=== PATIENT | female | born 1940 | race Caucasian/White ===

== ENCOUNTER → 2017-12-24 09:44 | Outpatient (CLI) | payer MEDICARE, OTHER, SELFPAY ==
[2017-12-24 11:17] LABS: Add Manual Diff / Slide Review NO; Basophils Percent Auto 0.8 % (0-2); Eosinophils Percent Auto 5.6 % (2-4); Hemoglobin 12.9 g/dL (12.0-16.0); Mean Corpuscular HGB Conc 33.1 % (30-36); Mean Corpuscular Hemoglobin 31.5 PG (26-34); Mean Corpuscular Volume 95.3 fL (80-100); Neutrophils Absolute Auto 2800 /uL (3000-5900); Neutrophils Percent Auto 57.6 % (50-75); Platelet Count 312 X10^3/uL (150-400); Red Blood Cell Count 4.09 X10^6/uL (4.0-5.2); Red Cell Distribution Width 14.6 % (11.6-14.8); White Blood Cell Count 4.8 X10^3/uL (4.5-11.0)
[2017-12-24 11:26] LABS: HEMOLYSIS < 15 (0-50); Iron 45 ug/dL (37-170)
[2017-12-24 11:36] LABS: Percent Iron Saturation 13 % (15-50); Total Iron Binding Capacity 351 ug/dL (265-497); Transferrin 288 mg/dL (206-381)
[2017-12-24 12:15] LABS: Alanine Aminotransferase 33 IU/L (9-52); Albumin 4.1 g/dL (3.5-5.0); Albumin Globulin Ratio 1.5 (1.0-2.8); Alkaline Phosphatase 88 U/L (38-126); Aspartate Aminotransferase 34 IU/L (14-36); Bilirubin Total 0.3 mg/dL (0.2-1.3); Blood Urea Nitrogen 16 mg/dL (7-17); Calcium 9.9 mg/dL (8.4-10.2); Carbon Dioxide 26 mmol/L (22-32); Chloride 105 mmol/L (98-107); Estimated Glomerular Filt Rate > 60.0 mL/min (>60); Globulin 2.8 g/dL (1.7-4.1); Glucose 107 mg/dL (80-110); HEMOLYSIS < 15 (0-50); Sodium 142 mmol/L (137-145); Total Protein 6.9 g/dL (6.3-8.2)
[2017-12-24 12:16] LABS: Potassium 5.8 mmol/L (3.4-5.1)
[2017-12-24 12:39] LABS: Ferritin 15.7 ng/mL (11.1-264)
== END ==
PROVIDERS: Visit Provider Nurse Practitioner Family
DX: D50.9 Iron deficiency anemia, unspecified (principal); I10 Essential (primary) hypertension
CPT/HCPCS: 36415; 80053; 82728; 83540; 83550; 85025

== ENCOUNTER 2017-12-26 13:47 | Emergency (ER) | payer MEDICARE, OTHER, SELFPAY ==
[2017-12-26 13:59] VITALS: BP 81/59; PULSE 70; RESP 18; TEMP 36.6; O2SAT 95; BMI 30.5
--- NOTE | 2017-12-26 14:03 | DI.RAD.S_ITS ---
PROCEDURE: XR HUMERUS LT 2V INDICATIONS: fall TECHNIQUE: 2 views of the humerus were acquired. COMPARISON: None. FINDINGS: Bones: There is a mildly displaced fracture of the humeral neck. Fractures also identified within the posterior aspect of the humeral head. There is no displacement at the glenohumeral joint. Soft tissues: No suspicious soft tissue calcifications. IMPRESSION: Mildly displaced humeral neck and and head fractures. Dictated by: Pratima Min M.D. on 12/26/2017 at 15:21 Approved by: Pratima Min M.D. on 12/26/2017 at 15:22
--- NOTE | 2017-12-26 15:17 | ED_ITS ---
HPI - Extremity Injury (Upper) General Chief Complaint: Extremity Injury, Upper Stated Complaint: glf left arm injury Time Seen by Provider: 12/26/17 15:00 Source: patient and family Mode of arrival: ambulatory Limitations: no limitations History of Present Illness HPI narrative: 77F non smoker presents with a family friend and a chief complaint of left shoulder pain. She was walking and tripped over a bag, and fell forward onto her left shoulder. She now has intense pain, particularly with any range of motion. She denies other injury and states she did not hit her head neck or back. She has decreased range of motion secondary to pain but denies numbness, tingling or weakness. Patient states the fall was purely mechanical and denies any precipitating symptoms such as dizziness, weakness or lightheadedness. She denies any chest pain or shortness of breath MD complaint: injury to: left and shoulder Onset (ago): hour(s) Other injuries: none Handedness: right Place: work Severity: moderate Relieving factors: immobilization Exacerbating factors: movement of extremity Context: fall and direct blow Associated symptoms: denies other symptoms Treatments prior to arrival: bandage Related Data Previous Rx's Medication Instructions Recorded hydrocodone-acetaminophen 1 tab PO Q4-6H PRN #14 tab 12/26/17 Allergies Allergy/AdvReac Type Severity Reaction Status Date / Time Penicillins [PENICILLINS] Allergy Mild rash, Verified 12/26/17 17:24 itching Sulfa (Sulfonamide Allergy Unknown Verified 12/26/17 17:24 Antibiotics) [SULFA (SULFONAMIDE ANTIBIOTICS)] Review of Systems Review of Systems All systems reviewed & are unremarkable except as noted in HPI and below Constitutional Denies chills, Denies fever(s), Denies lethargy and Denies weakness Eyes Denies change in vision, Denies eye discharge, Denies irritation and Denies loss of vision ENT Ears, Nose, Mouth, and Throat: Denies change in voice, Denies neck pain and Denies sore throat Cardiovascular Denies chest pain, Denies irregular heart rhythm, Denies lightheadedness, Denies palpitations, Denies dyspnea, Denies dyspnea on exertion and Denies orthopnea Respiratory Denies cough, Denies dyspnea, Denies dyspnea on exertion and Denies wheezing Gastrointestinal Gastrointestinal: Denies abdominal pain, Denies change in bowel habits, Denies diarrhea, Denies nausea and Denies vomiting Genitourinary Denies hematuria, Denies flank pain, Denies urinary incontinence and Denies urinary urgency Musculoskeletal Denies neck pain Integumentary/Breasts Denies pruritus, Denies erythema, Denies rash and Denies wounds Neurologic Denies confusion, Denies loss of vision and Denies weakness Psychiatric Denies anxiety, Denies confusion, Denies depression, Denies homicidal ideation and Denies suicidal ideation Endocrine Denies palpitations Hematologic/Lymphatic Denies easy bruising Allergic/Immunologic Denies wheezing PFSH Social History Smoking Status: Never smoker Exam Narrative Exam Narrative: GENERAL: 77-year-old female obviously in significant pain, sitting forward and clutching her left shoulder HEAD: Atraumatic. Normocephalic. No temporal or scalp tenderness. EYES: Pupils equal round and reactive. Extraocular motions intact. No scleral icterus. No injection or drainage. ENT: Nose without bleeding, purulent drainage or septal hematoma. Throat without erythema, tonsillar hypertrophy or exudate. Uvula midline. Airway patent. NECK: Trachea midline. No JVD or lymphadenopathy. Supple, nontender, no meningeal signs. CARDIOVASCULAR: Regular rate and rhythm without murmurs, gallops, or rubs. RESPIRATORY: Clear to auscultation. Breath sounds equal bilaterally. No wheezes , rales, or rhonchi. GASTROINTESTINAL: Abdomen soft, non-tender, nondistended. No hepato-splenomegaly , or palpable masses. No guarding. EXTREMITIES: decreased range of motion secondary to pain. Full range of motion at elbow and wrist. Sensation intact. Radial pulse and cap refill intact and normal BACK: Nontender without deformity or crepitance. No flank tenderness. NEURO: AOx3. SKIN: No rash or erythema. Initial Vital Signs Initial Vital Signs: Vital Signs Temperature 97.8 F 12/26/17 13:59 Pulse Rate 70 12/26/17 13:59 Respiratory Rate 18 12/26/17 13:59 Blood Pressure 81/59 L 12/26/17 13:59 Pulse Oximetry 95 12/26/17 13:59 Procedures Orthopedic Splinting/Casting Injury #1: Side: left Upper Extremity Injury Location: shoulder Upper Extremity Immobilizer: sling/shoulder immobilizer Course Orders Ordered: ED Orders 12/26/17 14:03 XR humerus LT 2V Stat Discontinued Medications Hydrocodone Bitart/Acetaminophen (Vicodin Prepack) 1 bottle MISC SEEINSTR ONE Stop: 12/26/17 16:49 Last Admin: 12/26/17 17:29 Dose: 1 bottle Fentanyl (Sublimaze) 25 mcg NASAL NOW ONE Stop: 12/26/17 15:12 Last Admin: 12/26/17 15:43 Dose: 25 mcg Reevaluation(s) Reevaluation #1: patient was given intranasal fentanyl prior to attempt at using a sling. This proved unsuccessful and she was very hesitant to try the sling. Eventually she was given hydrocodone and reluctantly tried the sling Vital Signs - 8 hr 12/26/17 13:59 12/26/17 15:22 12/26/17 18:52 Temperature 97.8 F Pulse Rate 70 79 Pulse Rate [Left Radial] 97 H Respiratory Rate 18 15 Blood Pressure 81/59 L Blood Pressure [Left Arm] 111/64 Pulse Oximetry 95 98 12/26/17 18:56 Temperature 98.6 F Pulse Rate 97 H Pulse Rate [Left Radial] Respiratory Rate 18 Blood Pressure Blood Pressure [Left Arm] 141/86 H Pulse Oximetry 100 MDM - Extremity Injury (Upper) Lab Data Attestation: I reviewed the patient's lab results. Imaging Data Shoulder Xray: Attestation: I personally reviewed and interpreted this imaging study as follows: Radiologist's impression: [place] [address] XRay Report Signed Patient: Rissa Fatima [facility]#: [id number] : 8Acct:[id number] Age/Sex: 77 / FDate of Service: 12/26/17 Loc: ED Accession Number: [id number] Procedure: XR humerus LT 2V Ordering Provider: Marcel Boles D.O. PROCEDURE: XR HUMERUS LT 2V INDICATIONS: fall TECHNIQUE: 2 views of the humerus were acquired. COMPARISON: None. FINDINGS: Bones: There is a mildly displaced fracture of the humeral neck. Fractures also identified within the posterior aspect of the humeral head. There is no displacement at the glenohumeral joint. Soft tissues: No suspicious soft tissue calcifications. IMPRESSION: Mildly displaced humeral neck and and head fractures. Dictated by: Pratima Min M.D. on 12/26/2017 at 15:21 Approved by: Pratima Min M.D. on 12/26/2017 at 15:22 Discharge Plan Departure Patient Disposition: Home Clinical Impression: Fracture of proximal end of left humerus Discharge Date/Time: 12/26/17 18:56 Instructions: DI for Humeral Fracture Activity Restrictions/Additional Instructions: *You have been diagnosed with [ humerus fracture ] *What to do: *Take medications as directed *Follow up with your primary care provider in 2-3 days, call for an appointment. Let them know you were seen in the Emergency Department and that we ask that you be seen in follow up *Return to ER if you should have any new, worsening or concerning symptoms Prescriptions: New hydrocodone-acetaminophen 5-325 mg tablet 1 tab PO Q4-6H PRN (Reason: pain) Qty: 14 RF: 0 Referrals: Beatris Tanner MD [Physician] -
[2017-12-26 15:22] VITALS: BP 111/64; PULSE 79; RESP 15; O2SAT 98
[2017-12-26] MEDS: fentaNYL 100 MCG/2 ML INJ 25 MCG NASAL (15:43)
[2017-12-26] MEDS: HYDROCODONE/ACET 5/325 PREPACK 1 BOTTLE MISC (17:29)
[2017-12-26 18:52] VITALS: PULSE 97
[2017-12-26 18:56] VITALS: BP 141/86; PULSE 97; RESP 18; TEMP 37; O2SAT 100
== END 2017-12-26 18:56 | disposition home or self-care (01) ==
PROVIDERS: Emergency Provider Emergency Medicine
DX: S42.202A Unspecified fracture of upper end of left humerus, initial encounter for closed fracture (principal); W01.0XXA Fall on same level from slipping, tripping and stumbling without subsequent striking against object, initial encounter
CPT/HCPCS: 73060; 99282; 99283; J3010

== ENCOUNTER 2018-08-02 21:56 | Emergency (ER) | payer MEDICARE, OTHER, SELFPAY ==
[2018-08-02 22:04] VITALS: BP 154/100; PULSE 100; RESP 19; TEMP 36.7; O2SAT 97; BMI 31.1
--- NOTE | 2018-08-02 22:20 | DI.US.S_ITS ---
PROCEDURE: US PERIPH VENOUS LOW EXTREM LT INDICATIONS: PAIN, EDEMA TECHNIQUE: Real-time imaging, as well as color and pulse Doppler interrogation, were performed of the lower extremity deep veins from the inguinal ligament to the popliteal fossa. COMPARISON: None. FINDINGS: The common femoral, femoral and popliteal veins are normally compressible, and free of intraluminal thrombus. Color and pulse Doppler demonstrate normal phasic intraluminal flow. There is normal augmentation response to distal compression maneuver. IMPRESSION: No evidence of deep vein thrombosis involving the left lower extremity. Dictated by: Michelle Benitez MD, PhD on 08/03/2018 at 9:58 Approved by: Michelle Benitez MD, PhD on 08/03/2018 at 9:58
--- NOTE | 2018-08-02 22:42 | ED_ITS ---
HPI - Extremity Problem General Chief complaint: Extremity Problem,Nontraumatic Stated complaint: LEFT LOWER LEG SWELLING UNABLE TO BARE WEIGHT Time Seen by Provider: 08/02/18 22:19 Source: patient Mode of arrival: ambulatory Limitations: no limitations History of Present Illness HPI Narrative: Patient is an 78-year-old female who presents with left knee and leg pain. She says it happened suddenly she sat down at a restaurant for dinner she felt a sudden pop she had pain. She is unable to bear weight. She now has swelling in her rod and calf. She is worried about a blood clot. She has not had any recent traveling she has no shortness of breath. No history of blood clots MD Complaint: extremity pain and extremity swelling Related Data Previous Rx's Medication Instructions Recorded hydrocodone-acetaminophen 1 tab PO Q4-6H PRN #14 tab 12/26/17 Allergies Allergy/AdvReac Type Severity Reaction Status Date / Time Penicillins [PENICILLINS] Allergy Mild rash, Verified 08/02/18 22:16 itching Sulfa (Sulfonamide Allergy Unknown Verified 08/02/18 22:16 Antibiotics) [SULFA (SULFONAMIDE ANTIBIOTICS)] Review of Systems Review of Systems GENERAL: Denies chills,fever HEENT: Denies throat pain RESPIRATORY: Denies dyspnea, cough, wheezing CARDIOVASCULAR: Denies chest pain, palpitations GASTROINTESTINAL: Denies nausea, vomiting MUSCULOSKELETAL: See HPI SKIN: No rash, no laceration, no pruritus NEUROLOGIC: Denies weakness, dizziness, headache, numbness 8 point review of systems is negative except for those stated above and HPI PFSH Medical History Patient denies significant medical history (Acute) Social History Smoking Status: Never smoker Social History Smoking Status: Never smoker Exam Initial Vital Signs Initial Vital Signs: Vital Signs Temperature 98.1 F 08/02/18 22:04 Pulse Rate 100 H 08/02/18 22:04 Respiratory Rate 19 08/02/18 22:04 Blood Pressure 154/100 H 08/02/18 22:04 Pulse Oximetry 97 08/02/18 22:04 GENERAL: Well-appearing, well-nourished and in no acute distress. CARDIOVASCULAR: peripheral pulses in tact, cap refill <2 sec RESPIRATORY: No respiratory distress, speaks in full sentences without diffic ulty EXTREMITIES: Normal range of motion, no clubbing or edema. Neurovascularly intact Left lower extremity: Mild swelling at the knee no pain behind the knee. She does have swelling and pain slightly anterior and at the patella. Knee is stable. NEUROLOGICAL: Cranial nerves II through XII grossly intact. Normal gait and speech. SKIN: Warm, dry, no petechiae, no rashes or lesions. Course Orders Ordered: ED Orders 08/02/18 22:20 US periph venous low extrem lt Stat Vital Signs - 8 hr 08/02/18 22:04 Temperature 98.1 F Pulse Rate 100 H Respiratory Rate 19 Blood Pressure 154/100 H Pulse Oximetry 97 MDM - Extremity (Nontraumatic) Imaging Data Venous US: Radiologist's impression: Left lower extremity venous duplex negative for DVT moderate sized popliteal cyst Discharge Plan Departure Patient Disposition: Home Clinical Impression: Mendez's cyst, ruptured Discharge Date/Time: 08/02/18 22:52 Interventions: ED Discharge Assessment Last Done: 08/02/18 22:51 Instructions: Bakers Cyst Activity Restrictions/Additional Instructions: *You have been diagnosed with ruptured Mendez cyst *What to do: The pain is likely from a ruptured Mendez cyst. You have some swelling and fluid in her knee which is causing her pain and discomfort. I recommend that he elevate and ice it which will help decrease the fluid. *Continue to take medications as directed Ibuprofen 400 mg every 6-8 hours if needed for pain *Follow up with your primary care provider in 2-3 days *Return to ER if you should have increasing swelling, increasing pain or any new, worsening or concerning symptoms Prescriptions: No Action hydrocodone-acetaminophen 5-325 mg tablet 1 tab PO Q4-6H PRN (Reason: pain) Qty: 14 RF: 0
== END 2018-08-02 22:52 | disposition home or self-care (01) ==
PROVIDERS: Emergency Provider Emergency Medicine
DX: M66.0 Rupture of popliteal cyst (principal)
CPT/HCPCS: 93971; 99282; 99283

== ENCOUNTER 2018-08-29 15:27 | Emergency (ER) | payer MEDICARE, OTHER, SELFPAY ==
[2018-08-29 15:31] VITALS: BP 164/86; PULSE 102; RESP 20; TEMP 37.2; O2SAT 97
--- NOTE | 2018-08-29 15:36 | DI.RAD.S_ITS ---
PROCEDURE: XR CHEST 1V INDICATIONS: fatigue, chest congestion TECHNIQUE: One view of the chest was acquired. COMPARISON: None. FINDINGS: Surgical changes and devices: None. Lungs and pleura: Lungs are clear. No pleural effusions or pneumothorax. Mediastinum: The cardiac contours are within normal limits. The aorta demonstrates calcification and tortuosity. Bones and chest wall: No suspicious bony lesions. Age-appropriate bony degenerative changes are seen. There is a remote appearing left humeral neck fracture. Overlying soft tissues appear unremarkable. IMPRESSION: Portable chest within normal limits for age. Dictated by: Jefferson Yanez M.D. on 08/29/2018 at 15:06 Approved by: Jefferson Yanez M.D. on 08/29/2018 at 15:06
[2018-08-29 15:50] VITALS: BP 178/87; PULSE 97; RESP 14; O2SAT 97
[2018-08-29 16:06] LABS: Add Manual Diff / Slide Review NO; Basophils Absolute Auto 100 /uL (0-100); Eosinophils Absolute Auto 100 /uL (0-450); Eosinophils Percent Auto 1.3 % (2-4); Hematocrit 37.3 % (36-46); Hemoglobin 12.1 g/dL (12.0-16.0); Lymphocytes Absolute Auto 1600 /uL (1100-4500); Lymphocytes Percent Auto 25.1 % (25-40); Mean Corpuscular HGB Conc 32.4 % (30-36); Mean Corpuscular Hemoglobin 28.9 PG (26-34); Mean Corpuscular Volume 89.2 fL (80-100); Monocytes Absolute Auto 700 /uL (0-900); Monocytes Percent Auto 10.7 % (3-14); Neutrophils Absolute Auto 3800 /uL (1500-7000); Neutrophils Percent Auto 61.9 % (50-75); Platelet Count 378 X10^3/uL (150-400); Red Blood Cell Count 4.18 X10^6/uL (4.0-5.2); Red Cell Distribution Width 16.5 % (11.6-14.8); White Blood Cell Count 6.2 X10^3/uL (4.5-11.0)
[2018-08-29 16:10] LABS: Alanine Aminotransferase 23 IU/L (9-52); Albumin 4.5 g/dL (3.5-5.0); Albumin Globulin Ratio 1.4 (1.0-2.8); Alkaline Phosphatase 86 U/L (38-126); Aspartate Aminotransferase 29 IU/L (14-36); Bilirubin Total 0.3 mg/dL (0.2-1.3); Blood Urea Nitrogen 12 mg/dL (7-17); Calcium 9.7 mg/dL (8.4-10.2); Carbon Dioxide 26 mmol/L (22-32); Chloride 104 mmol/L (98-107); Creatine Kinase 79 U/L (30-135); Estimated Glomerular Filt Rate > 60.0 mL/min (>60); Globulin 3.3 g/dL (1.7-4.1); Glucose 109 mg/dL (80-110); HEMOLYSIS < 15 (0-50); Potassium 4.4 mmol/L (3.4-5.1); Sodium 139 mmol/L (137-145); Total Protein 7.8 g/dL (6.3-8.2)
[2018-08-29 16:21] LABS: Troponin I < 0.012 ng/mL (0.01-0.034)
[2018-08-29 17:36] VITALS: BP 154/78; PULSE 75; RESP 15; O2SAT 99
[2018-08-29 18:00] VITALS: BP 144/72; PULSE 75
[2018-08-29] MEDS: SODIUM CHLORIDE 0.9% 1,000 ML 1000 ML IV (18:07)
[2018-08-29] MEDS: KETOROLAC 60 MG/2 ML VIAL 30 MG IV (18:27)
--- NOTE | 2018-08-29 18:43 | ED_ITS ---
HPI - Nausea/Vomiting/Diarrhea General Chief complaint: Nausea/Vomiting/Diarrhea Stated complaint: diarrhea,headaches,weakness sent by walk in Time Seen by Provider: 08/29/18 16:25 Source: patient and family Mode of arrival: ambulatory Limitations: no limitations History of Present Illness HPI Narrative: Patient comes to the emergency department complaining of intermittent diarrhea for just over a week. Patient states that her dog has also had diarrhea, and she thinks they may have the same thing. The patient states that about 8 days ago, she had diarrhea times several episodes in 1 day. She states it was watery, and unaccompanied by any other symptoms, other than feeling tired. Patient states the diarrhea only lasted 1 day, and for about a week after that, the patient seemed to be functioning normally, except for feeling tired. She states she did have an episode of dry heaving about 3 days ago, but did not vomit, and this resolved on its own. Patient states her appetite has been decreased, so she has not been eating as much as usual. Patient states that today, her diarrhea started up again, and has been watery/runny stool. Patient denies any measured fevers, though she did have the chills yesterday. She denies any abdominal pain, other than cramping when she has the diarrhea. No chest pain or shortness of breath. No dysuria. She has chronic back pain and states she has not noticed any change in this. No blood in her stool that she has noticed. Patient denies any exotic travel. No recent camping or hiking and drinking from streams. Nobody else has been sick that she has been exposed to. No recent antibiotic use. No new medications. No history of chronic bowel disorder. No other complaints at this time. Related Data Previous Rx's Medication Instructions Recorded hydrocodone-acetaminophen 1 tab PO Q4-6H PRN #14 tab 12/26/17 Allergies Allergy/AdvReac Type Severity Reaction Status Date / Time Penicillins [PENICILLINS] Allergy Mild rash, Verified 08/02/18 22:16 itching Sulfa (Sulfonamide Allergy Unknown Verified 08/02/18 22:16 Antibiotics) [SULFA (SULFONAMIDE ANTIBIOTICS)] Review of Systems Constitutional Reports chills (Yesterday only), Reports fatigue, Denies fever(s), Denies let hargy and Denies weakness Eyes Denies change in vision, Denies eye discharge, Denies irritation and Denies loss of vision ENT Ears, Nose, Mouth, and Throat: Denies change in voice, Denies neck pain and Denies sore throat Cardiovascular Denies chest pain, Denies irregular heart rhythm, Denies lightheadedness, Denies palpitations, Denies dyspnea, Denies dyspnea on exertion and Denies orthopnea Respiratory Denies cough, Denies dyspnea, Denies dyspnea on exertion and Denies wheezing Gastrointestinal Gastrointestinal: Reports abdominal pain (Cramping only), Denies change in bowel habits, Reports diarrhea, Denies nausea and Denies vomiting Genitourinary Denies hematuria, Denies flank pain, Denies urinary incontinence and Denies urinary urgency Musculoskeletal Denies neck pain Integumentary/Breasts Denies pruritus, Denies erythema, Denies rash and Denies wounds Neurologic Denies confusion, Denies loss of vision and Denies weakness Psychiatric Denies anxiety, Denies confusion, Denies depression, Denies homicidal ideation and Denies suicidal ideation Endocrine Reports fatigue and Denies palpitations Hematologic/Lymphatic Denies easy bruising Allergic/Immunologic Denies wheezing [facility] Medical History Patient denies significant medical history (Acute) Social History Smoking Status: Never smoker Exam Initial Vital Signs Initial Vital Signs: Vital Signs Temperature 98.9 F 08/29/18 15:31 Pulse Rate 102 H 08/29/18 15:31 Respiratory Rate 20 08/29/18 15:31 Blood Pressure 164/86 H 08/29/18 15:31 Pulse Oximetry 97 08/29/18 15:31 Const General: cooperative and well developed Nutritional Appearance: well nourished Orientation: alert, awake, oriented x3 and not confused [facility] Head: normocephalic and atraumatic Ears: external ears normal Nose: external nose normal and No nasal discharge Face and sinus: face symmetric and No dry mucous membranes Mouth: oral mucosae normal and moist mucous membranes Teeth and gingiva: dentition normal Eyes General: appearance normal, both eyes and all related structures Eyelids: eyelids normal Conjunctivae: conjunctivae normal Sclera: sclerae normal Pupils: PERRL EOM: EOM intact bilaterally Neck Neck: normal visual inspection, trachea midline, No lymphadenopathy, No midline deformity and No JVD Lymphatic: No lymphedema Chest Chest: normal inspection of the chest Resp Effort & Inspection: normal respiratory effort, able to speak in complete sentences, no respiratory distress and no use of accessory muscles Auscultation: clear to auscultation bilaterally, no rales, no rhonchi and no wheezes Cardio Rate: regular rate Rhythm: regular rhythm Heart Sounds: no click, no gallops, no murmurs and no rubs Pulses: normal peripheral pulses GI Inspection: non-distended Palpation: soft, no hepatosplenomegaly, No guarding, No pulsatile mass and No tender Back/Spine/Pelvis Back: No CVA tenderness Cervical Spine: cervical ROM normal and No pain with cervical ROM Thoracic/Lumbar Spine: thoracic and lumbar spine normal to inspection Skin General: no rashes or lesions noted, No jaundice and No petechiae Neuro General: alert, oriented x3, gait normal and no focal motor deficits Speech: speech normal Extrem General: full ROM, no clubbing, cyanosis or edema, no pedal edema and no calf tenderness Psych Appearance: well kempt Mental Status: mental status grossly normal Attitude: cooperative Thought Content: normal and suicidality Judgment: judgment good Course Course Narrative: Patient was worked up with labs, and treated with IV fluids. Her labs were unremarkable. I discussed with the patient that the best way to evaluate her diarrhea is with a stool sample, but the patient did not feel she would be able to give one here in the emergency department. She was given a cup in K she felt the urge to go while receiving her IV fluids. I have discussed with her the various potential causes of diarrhea. The patient is signed out to Dr. Naik, pending completion of IV fluids. Discharge home with follow-up with primary care physician is anticipated, barring any change in the patient's condition. Orders Ordered: ED Orders 08/29/18 15:30 Complete Blood Count AUTO DIFF Stat Comprehensive Metabolic Panel Stat Troponin & CK Cardiac Panel Stat 08/29/18 15:36 XR chest 1V Stat EKG-12 Lead Stat Sodium Chloride (Normal Saline 0.9%) 1,000 mls @ 1,000 mls/hr IV BOLUS ONE Stop: 08/29/18 18:44 Last Admin: 08/29/18 18:07 Dose: 1,000 mls/hr Discontinued Medications Ketorolac Tromethamine (Toradol) 30 mg IV NOW ONE Stop: 08/29/18 18:24 Last Admin: 08/29/18 18:27 Dose: 30 mg Vital Signs - 8 hr 08/29/18 15:31 08/29/18 15:50 08/29/18 17:36 Temperature 98.9 F Pulse Rate 102 H 97 H 75 Respiratory Rate 20 14 15 Blood Pressure 164/86 H Blood Pressure [Right Arm] 178/87 H 154/78 H Pulse Oximetry 97 97 99 MDM - Nausea/Vomiting/Diarrhea Medical Records Attestation: I reviewed the patient's medical records. Lab Data Attestation: I reviewed the patient's lab results. Result diagrams: 08/29/18 15:30 08/29/18 15:30 Lab Results 08/29/18 08/29/18 Range/Units 15:30 15:30 WBC 6.2 (4.5-11.0) X10^3/uL RBC 4.18 (4.0-5.2) X10^6/uL Hgb 12.1 (12.0-16.0) g/dL Hct 37.3 (36-46) % MCV 89.2 (80-100) fL MCH 28.9 (26-34) PG MCHC 32.4 (30-36) % RDW 16.5 H (11.6-14.8) % Plt Count 378 (150-400) X10^3/uL Neut % (Auto) 61.9 (50-75) % Lymph % (Auto) 25.1 (25-40) % [place] % (Auto) 10.7 (3-14) % Eos % (Auto) 1.3 L (2-4) % Baso % (Auto) 1.0 (0-2) % Neut # (Auto) 3800 (5508-5721) /uL Lymph # (Auto) 1600 (4968-8846) /uL [place] # (Auto) 700 (0-900) /uL Eos # (Auto) 100 (0-450) /uL Baso # (Auto) 100 (0-100) /uL Sodium 139 (137-145) mmol/L Potassium 4.4 (3.4-5.1) mmol/L Chloride 104 (98-107) mmol/L Carbon Dioxide 26 (22-32) mmol/L BUN 12 (7-17) mg/dL Creatinine 0.80 (0.52-1.04) mg/dL Estimated GFR > 60.0 (>60) mL/min BUN/Creatinine Ratio 15.0 (6-22) Glucose 109 (80-110) mg/dL Calcium 9.7 (8.4-10.2) mg/dL Total Bilirubin 0.3 (0.2-1.3) mg/dL AST 29 (14-36) IU/L ALT 23 (9-52) IU/L Alkaline Phosphatase 86 (38-126) U/L Total Creatine Kinase 79 (30-135) U/L CK-MB (CK-2) TNP CK-MB (CK-2) Rel Index TNP Troponin I < 0.012 (0.01-0.034) ng/mL Total Protein 7.8 (6.3-8.2) g/dL Albumin 4.5 (3.5-5.0) g/dL Globulin 3.3 (1.7-4.1) g/dL Albumin/Globulin Ratio 1.4 (1.0-2.8) Discharge Plan Departure Patient Disposition: Home Clinical Impression: Diarrhea Qualifiers: Diarrhea type: unspecified type Qualified Code(s): R19.7 - Diarrhea, unspecified Instructions: DI for Dehydration -- Adult, DI for Diarrhea and Traveler's Diarrhea -- Adult Activity Restrictions/Additional Instructions: Your labs look great. You have been treated with IV fluids for any dehydration that may be present from your decreased oral intake and diarrhea. There is no evidence of a serious condition causing your diarrhea. The best diagnostic tool in evaluating diarrhea is a stool sample evaluation. Since you have not been able to give a stool sample here in the emergency department, please take the cup home. If you began having diarrhea again, please collect a sample at home and bring it to your primary care physician's office for further evaluation. In the meantime, please make an appointment to follow up with your primary doctor. Prescriptions: No Action hydrocodone-acetaminophen 5-325 mg tablet 1 tab PO Q4-6H PRN (Reason: pain) Qty: 14 RF: 0 Referrals: [facility] [Provider Group]
[2018-08-29 19:00] VITALS: BP 170/78; PULSE 80; O2SAT 99
[2018-08-29 19:15] VITALS: BP 144/73; PULSE 83; RESP 18; O2SAT 96
== END 2018-08-29 19:19 | disposition home or self-care (01) ==
PROVIDERS: Emergency Provider Emergency Medicine
DX: R19.7 Diarrhea, unspecified (principal); R03.0 Elevated blood-pressure reading, without diagnosis of hypertension
CPT/HCPCS: 36591; 71045; 80053; 82550; 84484; 85025; 93005; 96361; 96374; 99283; 99285; J1885

== ENCOUNTER 2020-01-09 12:32 | Observation (INO) | payer MEDICARE, OTHER, SELFPAY ==
[2020-01-09] VITALS (13 sets, daily range): BP systolic 105–172; BP diastolic 63–88; PULSE 79–116; RESP 16–36; TEMP 36.2–36.9; O2SAT 95–100
--- NOTE | 2020-01-09 12:40 | DI.RAD.S_ITS ---
PROCEDURE: XR CHEST 1V INDICATIONS: Chest pain TECHNIQUE: One view of the chest was acquired. COMPARISON: [facility], CR, XR CHEST 1V, 08/29/2018, 15:42. FINDINGS: Surgical changes and devices: None. Lungs and pleura: Lungs are clear. No pleural effusions or pneumothorax. Mediastinum: Mediastinal contours appear normal. Heart size is normal. Moderately large hiatal hernia behind the heart Bones and chest wall: No suspicious bony lesions. Overlying soft tissues appear unremarkable. IMPRESSION: Moderately large hiatal hernia behind heart, a definite source of chest pain is not seen. Dictated by: Forrest Hernandez M.D. on 01/09/2020 at 13:23 Approved by: Forrest Hernandez M.D. on 01/09/2020 at 13:23
[2020-01-09 12:53] LABS: Add Manual Diff / Slide Review NO; Basophils Absolute Auto 100 /uL (0-100); Basophils Percent Auto 0.7 % (0-2); Eosinophils Absolute Auto 100 /uL (0-450); Eosinophils Percent Auto 1.8 % (2-4); Hematocrit 35.8 % (36-46); Lymphocytes Absolute Auto 1200 /uL (1100-4500); Lymphocytes Percent Auto 15.2 % (25-40); Mean Corpuscular HGB Conc 33.4 % (30-36); Mean Corpuscular Hemoglobin 30.7 PG (26-34); Mean Corpuscular Volume 92.1 fL (80-100); Monocytes Absolute Auto 700 /uL (0-900); Monocytes Percent Auto 9.4 % (3-14); Neutrophils Absolute Auto 5800 /uL (1500-7000); Neutrophils Percent Auto 72.9 % (50-75); Platelet Count 390 X10^3/uL (150-400); Red Blood Cell Count 3.89 X10^6/uL (4.0-5.2); Red Cell Distribution Width 14.3 % (11.6-14.8); White Blood Cell Count 7.9 X10^3/uL (4.5-11.0)
[2020-01-09 13:08] LABS: INR 0.9 (0.9-1.3); Prothrombin Time 10.8 SECONDS (10.1-12.7)
--- NOTE | 2020-01-09 13:09 | ED_ITS ---
HPI - Chest Pain General Chief Complaint: Chest Pain Stated Complaint: Elephant Sitting On Chest,Weakness Time Seen by Provider: 01/09/20 12:39 Source: patient Mode of arrival: Ambulatory Limitations: no limitations History of Present Illness HPI narrative: Patient is an 79-year-old female here for evaluation which she describes as an elephant sitting on her chest and also weakness in her legs. Patient states that the chest discomfort that she presents with today has happened to her in the past. She states is actually going on for several years being off and on. She does not know anything that potentially makes it worse or makes it better. She is not currently having symptoms however she did have it this morning. She also states that what is different about this is that she was feeling somewhat weak in her legs. She denies any other associated symptoms. No sick contacts. No fevers. Patient is tachycardic however she states that her heart rate is normally greater than 110. She had a history of rheumatic fever as a child in states she has chronic lung issues without any specific diagnosis. She has been taking all of her medications as directed. Related Data Home Medications Medication Instructions Recorded Confirmed cyclosporine [Restasis] 1 drp OPHTHALMIC (EYE) DAILY 01/09/20 01/09/20 lisinopril 10 mg PO DAILY 01/09/20 01/09/20 valacyclovir 1 PO DAILY 01/09/20 Previous Rx's Medication Instructions Recorded hydrocodone-acetaminophen 1 tab PO Q4-6H PRN #14 tab 12/26/17 Allergies Allergy/AdvReac Type Severity Reaction Status Date / Time Penicillins [PENICILLINS] Allergy Mild rash, Verified 08/02/18 22:16 itching Sulfa (Sulfonamide Allergy Unknown Verified 08/02/18 22:16 Antibiotics) [SULFA (SULFONAMIDE ANTIBIOTICS)] Review of Systems Constitutional Constitutional: Denies fever(s), Denies headache(s) and Reports weakness ENT Ears, Nose, Mouth, and Throat: Denies headache(s) Cardiovascular Cardiovascular: Reports chest pain, Denies rapid heart rate, Denies irregular heart rhythm, Denies lightheadedness, Denies dyspnea and Denies dyspnea on exertion Respiratory Respiratory: Denies cough, Denies dyspnea and Denies dyspnea on exertion Gastrointestinal Gastrointestinal: Denies abdominal pain, Denies nausea and Denies vomiting Genitourinary Genitourinary: Denies dysuria Genitourinary: Denies dysuria Musculoskeletal Musculoskeletal: Denies arthralgias and Denies myalgias Comments: Lower extremity weakness Integumentary/Breasts Skin/Breast: Denies lesions and Denies rash Neurologic Neurologic: Denies behavioral changes, Denies headache(s) and Reports weakness Psychiatric Psychiatric: Denies behavioral changes Hematologic/Lymphatic Hematologic/Lymphatic: Denies easy bleeding and Denies easy bruising Allergic/Immunologic Allergic/Immunologic: Denies urticaria Patient History Medical History Patient denies significant medical history Rheumatic fever Social History household members: none Smoking Status: Never smoker Smoking Status: Never smoker alcohol intake frequency: a few times a week Substance Use Type: does not use Exam Initial Vital Signs Initial Vital Signs: Vital Signs Pulse Rate 109 H 01/09/20 12:41 Respiratory Rate 35 H 01/09/20 12:41 Pulse Oximetry 100 01/09/20 12:41 Const General: cooperative, comfortable, well developed and well groomed Limitations: mental status not altered HENMT Head: normal to inspection and normocephalic Chest Chest: normal inspection of the chest Resp Effort & Inspection: normal respiratory effort Auscultation: clear to auscultation bilaterally Cardio Rate: tachycardic Rhythm: regular rhythm Pulses: radial pulses present GI Inspection: non-distended Palpation: soft Skin Lesions: no lesions Rashes: no rashes Neuro General: patient alert, patient awake and patient oriented x3 Cognition: normal cognition Speech: speech normal Gait: normal gait Motor: muscle tone normal throughout Extrem General: normal to inspection and capillary refill normal Psych Appearance: grossly normal and well kempt Scores GCS Claudia coma scale eye opening: Spontaneous Claudia coma scale verbal response: Orientated [place] coma scale motor response: Obey commands Claudia coma scale total score: 15 HEART Score Heart Score history: Slightly Suspicious Heart Score EKG: Normal Heart Score Age: > or = 65 years old Heart Score risk factors: 1-2 risk factors Heart Score troponin: < or = to normal limit Heart Score Total: 3 Course Orders Ordered: ED Orders 01/09/20 12:40 XR chest 1V Stat 01/09/20 12:41 EKG-12 Lead Stat 01/09/20 12:48 Complete Blood Count AUTO DIFF Stat Comprehensive Metabolic Panel Stat Lipase Stat NT-proBNP (BNP-Adult 18+) Stat Partial Thromboplastin Time Stat Procalcitonin Stat Prothrombin Time INR Stat Troponin & CK Cardiac Panel Stat 01/09/20 13:17 D Dimer Stat 01/09/20 13:47 COVID19 Stat 01/09/20 14:06 CT angio chest PE protocol Stat Sodium Chloride (Normal Saline 0.9%) 1,000 mls @ 125 mls/hr IV CONT MUKESH Last Infusion: 01/09/20 16:22 Dose: 0 mls/hr Documented by: Admin: 01/09/20 14:02 Dose: 125 mls/hr Documented by: SCANAPO Vital Signs Vital signs: Vital Signs - 8 hr 01/09/20 12:41 01/09/20 12:42 01/09/20 13:00 Temperature 98.4 F Pulse Rate 109 H 116 H 109 H Respiratory Rate 35 H 20 33 H Blood Pressure 141/78 H Pulse Oximetry 100 99 98 01/09/20 13:13 01/09/20 13:30 01/09/20 14:00 Temperature Pulse Rate 103 H 100 H 100 H Respiratory Rate 34 H 22 18 Blood Pressure 137/76 134/73 156/63 H Pulse Oximetry 97 96 98 01/09/20 14:30 01/09/20 15:00 01/09/20 15:30 Temperature Pulse Rate 91 H 88 88 Respiratory Rate 18 36 H 21 Blood Pressure 144/68 H 142/78 H Pulse Oximetry 98 98 96 01/09/20 15:31 01/09/20 16:30 Temperature 97.2 F L Pulse Rate 87 98 H Respiratory Rate 21 20 Blood Pressure 105/66 172/88 H Pulse Oximetry 96 99 MDM - Chest Pain Lab Data Attestation: I reviewed the patient's lab results. Result diagrams: 01/09/20 12:48 01/09/20 12:48 Labs: Lab Results 01/09/20 01/09/20 01/09/20 Range/Units 12:48 12:48 12:48 WBC 7.9 (4.5-11.0) X10^3/uL RBC 3.89 L (4.0-5.2) X10^6/uL Hgb 12.0 (12.0-16.0) g/dL Hct 35.8 L (36-46) % MCV 92.1 (80-100) fL MCH 30.7 (26-34) PG MCHC 33.4 (30-36) % RDW 14.3 (11.6-14.8) % Plt Count 390 (150-400) X10^3/uL Neut % (Auto) 72.9 (50-75) % Lymph % (Auto) 15.2 L (25-40) % Newton % (Auto) 9.4 (3-14) % Eos % (Auto) 1.8 L (2-4) % Baso % (Auto) 0.7 (0-2) % Neut # (Auto) 5800 (6768-8763) /uL Lymph # (Auto) 1200 (8564-5106) /uL Newton # (Auto) 700 (0-900) /uL Eos # (Auto) 100 (0-450) /uL Baso # (Auto) 100 (0-100) /uL PT 10.8 (10.1-12.7) SECONDS INR 0.9 (0.9-1.3) APTT 30 (26.4-36.2) SECONDS D-Dimer (<230) ng/mL Sodium 132 L (137-145) mmol/L Potassium 4.9 (3.4-5.1) mmol/L Chloride 100 (98-107) mmol/L Carbon Dioxide 26 (22-32) mmol/L BUN 19 H (7-17) mg/dL Creatinine 0.87 (0.52-1.04) mg/dL Estimated GFR > 60.0 (>60) mL/min BUN/Creatinine Ratio 21.8 (6-22) Glucose 122 H (80-110) mg/dL Calcium 9.7 (8.4-10.2) mg/dL Total Bilirubin 0.3 (0.2-1.3) mg/dL AST 27 (14-36) IU/L ALT 16 (<35) IU/L Alkaline Phosphatase 99 (38-126) U/L Total Creatine Kinase 48 (30-135) U/L CK-MB (CK-2) TNP CK-MB (CK-2) Rel Index TNP Troponin I < 0.012 (0.01-0.034) ng/mL NT-Pro-B Natriuret Pep 86 (<450) pg/mL Total Protein 7.5 (6.3-8.2) g/dL Albumin 4.2 (3.5-5.0) g/dL Globulin 3.3 (1.7-4.1) g/dL Albumin/Globulin Ratio 1.3 (1.0-2.8) Lipase 76 (23-300) U/L Procalcitonin (<0.5) ng/mL COVID-19 PCR (Negative) 01/09/20 01/09/20 01/09/20 Range/Units 12:48 13:17 13:47 WBC (4.5-11.0) X10^3/uL RBC (4.0-5.2) X10^6/uL Hgb (12.0-16.0) g/dL Hct (36-46) % MCV (80-100) fL MCH (26-34) PG MCHC (30-36) % RDW (11.6-14.8) % Plt Count (150-400) X10^3/uL Neut % (Auto) (50-75) % Lymph % (Auto) (25-40) % Newton % (Auto) (3-14) % Eos % (Auto) (2-4) % Baso % (Auto) (0-2) % Neut # (Auto) (3663-0909) /uL Lymph # (Auto) (6778-9836) /uL Newton # (Auto) (0-900) /uL Eos # (Auto) (0-450) /uL Baso # (Auto) (0-100) /uL PT (10.1-12.7) SECONDS INR (0.9-1.3) APTT (26.4-36.2) SECONDS D-Dimer 2356 H (<230) ng/mL Sodium (137-145) mmol/L Potassium (3.4-5.1) mmol/L Chloride (98-107) mmol/L Carbon Dioxide (22-32) mmol/L BUN (7-17) mg/dL Creatinine (0.52-1.04) mg/dL Estimated GFR (>60) mL/min BUN/Creatinine Ratio (6-22) Glucose (80-110) mg/dL Calcium (8.4-10.2) mg/dL Total Bilirubin (0.2-1.3) mg/dL AST (14-36) IU/L ALT (<35) IU/L Alkaline Phosphatase (38-126) U/L Total Creatine Kinase (30-135) U/L CK-MB (CK-2) CK-MB (CK-2) Rel Index Troponin I (0.01-0.034) ng/mL NT-Pro-B Natriuret Pep (<450) pg/mL Total Protein (6.3-8.2) g/dL Albumin (3.5-5.0) g/dL Globulin (1.7-4.1) g/dL Albumin/Globulin Ratio (1.0-2.8) Lipase (23-300) U/L Procalcitonin < 0.05 (<0.5) ng/mL COVID-19 PCR Negative (Negative) Imaging Data Chest x-ray: Radiologist's Impression: [address] [id number] ReportSigned Patient: Rissa Fatima [facility]#: [id number]: 1940cct:[id number]/Sex: 79 / FDate of Service: 01/09/20Loc: EDAccession Number: [id number] Procedure: XR chest 1V Ordering Provider: Arnold Mcdonough D.O. PROCEDURE: XR CHEST 1V INDICATIONS: Chest pain TECHNIQUE: One view of the chest was acquired. COMPARISON: [facility], , XR CHEST 1V, 08/29/2018, 15:42. FINDINGS: Surgical changes and devices: None. Lungs and pleura: Lungs are clear. No pleural effusions or pneumothorax. Mediastinum: Mediastinal contours appear normal. Heart size is normal. Moderately large hiatal hernia behind the heart Bones and chest wall: No suspicious bony lesions. Overlying soft tissues appear unremarkable. IMPRESSION: Moderately large hiatal hernia behind heart, a definite source of chest pain is not seen. Dictated by: Forrest Hernandez M.D. on 01/09/2020 at 13:23 Approved by: Forrest Hernandez M.D. on 01/09/2020 at 13:23 CT scan - chest: Radiologist's Impression: [address] [id number] Scan ReportSigned Patient: Rissa Fatima [facility]#: [id number]: 8Acct:[id number]/Sex: 79 / FDate of Service: 01/09/20Loc: EDAccession Number: [id number] Procedure: CT angio chest PE protocol Ordering Provider: Arnold Mcdonough D.O. PROCEDURE: CT ANGIO CHEST PE PROTOCOL INDICATIONS: Chest pain, shortness of breath, tachycardia TECHNIQUE: After the administration of intravenous contrast, 2 mm thick sections acquired from the pulmonary apices to the posterior costophrenic angles. 3-dimensional maximum intensity projection (MIP) coronal and sagittal reformats were then acquired through the thorax. For radiation dose reduction, the following was used: automated exposure control, adjustment of mA and/or kV according to patient size. COMPARISON: [facility], , XR CHEST 1V, 01/09/2020, 12:57. FINDINGS: Image quality: Excellent. Pulmonary arteries: Pulmonary arteries are normal in size, and demonstrate no intraluminal filling defects to suggest central pulmonary embolism. Lungs and pleura: Lungs are clear. No pleural effusions or pneumothorax. Central and peripheral airways are patent. Mediastinum: Heart size is normal, without pericardial effusion. No mediastinal or hilar adenopathy. Thoracic aorta is normal in caliber and enhancement. Esophagus is normal in caliber, with a moderately large hiatal hernia as seen on plain film imaging earlier today.. Bones and chest wall: No suspicious bony lesions. Ribs and thoracic spine appear intact throughout. Thyroid gland appears normal where well seen . No axillary or supraclavicular adenopathy. Abdomen: Visualized upper abdominal solid organs appear normal in the early arterial phase of enhancement. IMPRESSION: A pulmonary embolus is not found. There is, however, a moderately large hiatal hernia behind the heart, mildly distorting the posterior mediastinum. This structure measures up to 10.3 cm in maximal transverse dimension and approximately 6.6 cm AP with an estimated craniocaudad extent of 9.3 cm. This structure does impinge on the posterior border of the heart and conceivably could be related to current symptomatology. Dictated by: Forrest Hernandez M.D. on 01/09/2020 at 14:14 Approved by: Forrest Hernandez M.D. on 01/09/2020 at 14:21 ECG Data Attestation: I personally reviewed and interpreted this ECG as follows: Prior ECG tracings: not available for review Interpretation: Sinus tachycardia Ventricular rate of 106 Normal axis Normal QRS Normal QTC No ST T wave changes MDM Narrative Medical decision making narrative: Patient CT of her chest was negative. No signs of pulmonary embolis. Tachycardic on her EKG. No murmur on her exam. She does have a history of rheumatic fever. Did have a cardiac workup many years ago but nothing since then. Given her symptoms and her age and other risk factors I do feel bringing her into the hospital for further evaluation to include provocative testing is needed. Discussed the case with Dr. kraus with Internal Medicine will admit. Discussed this with the patient she expressed understanding and agreement. Discharge Plan Departure Patient Disposition: Admitted as Observation Clinical Impression: Chest pain Admit Date/Time: 01/09/20 16:35 Admit Provider: Iva Kraus
[2020-01-09 13:11] LABS: PTT Partial Thromboplastin Tim 30 SECONDS (26.4-36.2)
[2020-01-09 13:14] LABS: Alanine Aminotransferase 16 IU/L (<35); Albumin 4.2 g/dL (3.5-5.0); Albumin Globulin Ratio 1.3 (1.0-2.8); Alkaline Phosphatase 99 U/L (38-126); Aspartate Aminotransferase 27 IU/L (14-36); BUN Creatinine Ratio 21.8 (6-22); Bilirubin Total 0.3 mg/dL (0.2-1.3); Blood Urea Nitrogen 19 mg/dL (7-17); Calcium 9.7 mg/dL (8.4-10.2); Carbon Dioxide 26 mmol/L (22-32); Chloride 100 mmol/L (98-107); Creatine Kinase 48 U/L (30-135); Estimated Glomerular Filt Rate > 60.0 mL/min (>60); Globulin 3.3 g/dL (1.7-4.1); Glucose 122 mg/dL (80-110); HEMOLYSIS < 15 (0-50); Lipase 76 U/L (23-300); Potassium 4.9 mmol/L (3.4-5.1); Sodium 132 mmol/L (137-145); Total Protein 7.5 g/dL (6.3-8.2)
[2020-01-09 13:25] LABS: NT-proBNP (BNP-Adult 18+) 86 pg/mL (<450); Troponin I < 0.012 ng/mL (0.01-0.034)
[2020-01-09 13:31] LABS: D Dimer 2356 ng/mL (<230)
[2020-01-09 13:32] LABS: Procalcitonin < 0.05 ng/mL (<0.5)
[2020-01-09] MEDS: SODIUM CHLORIDE 0.9% 1,000 ML 125 ML IV (14:02)
--- NOTE | 2020-01-09 14:06 | DI.CT.S_ITS ---
PROCEDURE: CT ANGIO CHEST PE PROTOCOL INDICATIONS: Chest pain, shortness of breath, tachycardia TECHNIQUE: After the administration of intravenous contrast, 2 mm thick sections acquired from the pulmonary apices to the posterior costophrenic angles. 3-dimensional maximum intensity projection (MIP) coronal and sagittal reformats were then acquired through the thorax. For radiation dose reduction, the following was used: automated exposure control, adjustment of mA and/or kV according to patient size. COMPARISON: [facility], CR, XR CHEST 1V, 01/09/2020, 12:57. FINDINGS: Image quality: Excellent. Pulmonary arteries: Pulmonary arteries are normal in size, and demonstrate no intraluminal filling defects to suggest central pulmonary embolism. Lungs and pleura: Lungs are clear. No pleural effusions or pneumothorax. Central and peripheral airways are patent. Mediastinum: Heart size is normal, without pericardial effusion. No mediastinal or hilar adenopathy. Thoracic aorta is normal in caliber and enhancement. Esophagus is normal in caliber, with a moderately large hiatal hernia as seen on plain film imaging earlier today.. Bones and chest wall: No suspicious bony lesions. Ribs and thoracic spine appear intact throughout. Thyroid gland appears normal where well seen . No axillary or supraclavicular adenopathy. Abdomen: Visualized upper abdominal solid organs appear normal in the early arterial phase of enhancement. IMPRESSION: A pulmonary embolus is not found. There is, however, a moderately large hiatal hernia behind the heart, mildly distorting the posterior mediastinum. This structure measures up to 10.3 cm in maximal transverse dimension and approximately 6.6 cm AP with an estimated craniocaudad extent of 9.3 cm. This structure does impinge on the posterior border of the heart and conceivably could be related to current symptomatology. Dictated by: Forrest Hernandez M.D. on 01/09/2020 at 14:14 Approved by: Forrest Hernandez M.D. on 01/09/2020 at 14:21
[2020-01-09 14:21] LABS: COVID19 -Nasal RAPID Negative (Negative)
--- NOTE | 2020-01-09 19:00 | PC.NURSE ---
ADMISSION: Report received from ED, care assumed 1624. A&Ox3. Admitted for chest pain rule-out. Denies chest pain or pressure at this time. Denies SOB. Vital signs stable. Standby assist to bathroom. Tolerating heart healthy diet.
--- NOTE | 2020-01-09 19:56 | PM.HP.1 ---
History of Present Illness History of Present Illness Date Patient Seen: 01/09/20 Time Patient Seen: 19:55 Chief complaint: Elephant Sitting On Chest,Weakness Narrative: Ms. Rissa Fatima is an 79-year-old female with a past medical history significant for rheumatic heart disease as a child, GERD, hypertension and history of SVT who presents to the ER with complaints of chest discomfort. The patient the patient reports chest pain that feels like an elephant sitting on her chest today that had all but resolved upon arrival to the emergency department. The patient endorses prior history of similar chest discomforts occurring on and off for many years. She describes no exacerbating or relieving factors. She describes associated upper back pain and leg weakness occurring with episodes along with leg weakness for 3 days. She denies complaints of shortness of breath, nausea or diaphoresis. She has had no recent illness and denies fevers or chills nasal congestion or sore throat. She has chest pain as above and reports no palpitations however she does endorse a history of elevated heart rate secondary to rheumatic fever as a child. She has had no reports of abdominal pain though she does have a history of gastric reflux. She denies changes in bowel habits and has had no urinary complaints. Patient is ambulatory and uses no assistive devices. Upon arrival the ER the patient has a temperature 98.4?, heart rate of 116, blood pressure 141/78, respiratory rate of 20 saturating 98% on room air. Chest x-ray is obtained which shows a moderate to large hiatal hernia and lungs are clear. A CTA is obtained again read demonstrating moderately large hiatal hernia and no pulmonary embolism. Heart is described as normal. Twelve lead EKG finds sinus tachycardia at 1:06 a.m. without ectopy, no ST or T-wave changes, no evidence of infarct, unchanged from prior tracing. On laboratory analysis she has a white count of 7.9, hemoglobin of 12.0, hematocrit 35.8, platelets of 390. No shift. She has a PT of 10.8, INR 0.9 and PTT of 30. On chemistry she has a sodium of 132, potassium 4.9, BUN of 19 and creatinine 0.87. Her nonfasting glucose 122. Liver functions all within normal limits and she has lipase of 76. Her total CK is 48 troponin is less than 0.012. ProBNP is 86 and procalcitonin is negative. The patient is admitted to the hospitalist service for chest pain. Patient History Medical History (Updated 01/10/20 @ 08:27 by BONIFACIO Merlos) GERD (gastroesophageal reflux disease) Hypertension Osteoporosis Rheumatic fever SVT (supraventricular tachycardia) Surgical History (Updated 01/10/20 @ 08:27 by BONIFACIO Merlos) History of appendectomy Family & Social History Family History (Updated 01/10/20 @ 08:29 by BONIFACIO Merlos) Father Alcoholic Noel aneurysm Mother Rheumatoid arthritis Grandmother Angina pectoris Coronary artery disease Grandmother Leukemia Social History: household members none Prior Living Arrangements House Safety & Behavioral: Feels Safe in Current Yes Environment Been Physically Hurt or No Threatened By a Person Suicidal Ideation Description None Suicide Plan Description No Plan Tobacco & Substance use: Smoking Status Never smoker alcohol intake frequency a few times a week Substance Use Type does not use Meds Home Medications and Allergies Home Medications Medication Instructions Recorded Confirmed Type hydrocodone-acetaminophen 1 tab PO Q4-6H PRN #14 tab 12/26/17 01/09/20 Rx cyclosporine [Restasis] 1 drp OPHTHALMIC (EYE) DAILY 01/09/20 01/09/20 History lisinopril 10 mg PO DAILY 01/09/20 01/09/20 History valacyclovir 1 PO DAILY 01/09/20 History Allergies Allergy/AdvReac Type Severity Reaction Status Date / Time Penicillins [PENICILLINS] Allergy Mild rash, Verified 08/02/18 22:16 itching Sulfa (Sulfonamide Allergy Unknown Verified 08/02/18 22:16 Antibiotics) [SULFA (SULFONAMIDE ANTIBIOTICS)] Review of Systems Review of Systems ROS: Yes All systems reviewed with the patient and are negative except as otherwise documented Exam Vital Signs (past 8 hours): - 01/09/20 12:41 01/09/20 12:42 01/09/20 13:00 Temperature 98.4 F Pulse Rate 109 H 116 H 109 H Respiratory Rate 35 H 20 33 H Blood Pressure 141/78 H Pulse Oximetry 100 99 98 01/09/20 13:13 01/09/20 13:30 01/09/20 14:00 Temperature Pulse Rate 103 H 100 H 100 H Respiratory Rate 34 H 22 18 Blood Pressure 137/76 134/73 156/63 H Pulse Oximetry 97 96 98 01/09/20 14:30 01/09/20 15:00 01/09/20 15:30 Temperature Pulse Rate 91 H 88 88 Respiratory Rate 18 36 H 21 Blood Pressure 144/68 H 142/78 H Pulse Oximetry 98 98 96 01/09/20 15:31 01/09/20 16:30 Temperature 97.2 F L Pulse Rate 87 98 H Respiratory Rate 21 20 Blood Pressure 105/66 172/88 H Pulse Oximetry 96 99 Oxygen Delivery Method Room Air Narrative Exam Narrative: GENERAL APPEARANCE: well developed, obese female with BMI of 31.0, line semi recumbent resting comfortably in no acute distress. HEENT: Normocephalic, PERRLA, conjunctiva clear, EOMs intact without nystagmus, mucous membranes are moist and pink without lesions or exudate. NECK/THYROID: neck supple, no JVD, no carotid bruit, no thyromegaly, trachea midline. LYMPH NODES: no cervical or supraclavicular lymphadenopathy. SKIN: [place], warm and dry, no visible lesions, rashes, ulcerations or petechiae. HEART: regular rate and rhythm, S1-S2, 1/6 systolic murmur, no rubs or gallops, brisk capillary refill, no edema LUNGS: clear to auscultation bilaterally, no coarseness crackles or wheezing, no cough present CHEST: Symmetrical movement, no accessory muscle use, good tidal volume no pain on AP or lateral compression. ABDOMEN: Soft, no distention, no abdominal tenderness, no organomegaly, no flank or suprapubic tenderness, active bowel tones. BACK: Normal curvature, nontender to palpation, no CVA tenderness on percussion, no back pain on straight leg raise. EXTREMITIES: moves all extremities, strength is 5/5 and symmetrical, no deformities or joint effusions. NEUROLOGIC: AAO x4, no focal neurologic deficits, cranial nerves II-XII grossly intact, sensation intact to light touch, hearing grossly normal to speech. PSYCH: Good eye contact, cooperative, appropriate with stable behavior Objective Labs Result Diagrams: 01/09/20 12:48 01/10/20 04:45 Labs: Laboratory Results - last 24 hr 01/09/20 01/09/20 01/09/20 12:48 12:48 12:48 WBC 7.9 RBC 3.89 L Hgb 12.0 Hct 35.8 L MCV 92.1 MCH 30.7 MCHC 33.4 RDW 14.3 Plt Count 390 Neut % (Auto) 72.9 Lymph % (Auto) 15.2 L [place] % (Auto) 9.4 Eos % (Auto) 1.8 L Baso % (Auto) 0.7 Neut # (Auto) 5800 Lymph # (Auto) 1200 [place] # (Auto) 700 Eos # (Auto) 100 Baso # (Auto) 100 PT 10.8 INR 0.9 APTT 30 D-Dimer Sodium 132 L Potassium 4.9 Chloride 100 Carbon Dioxide 26 BUN 19 H Creatinine 0.87 Estimated GFR > 60.0 BUN/Creatinine Ratio 21.8 Glucose 122 H Calcium 9.7 Total Bilirubin 0.3 AST 27 ALT 16 Alkaline Phosphatase 99 Total Creatine Kinase 48 CK-MB (CK-2) TNP CK-MB (CK-2) Rel Index TNP Troponin I < 0.012 NT-Pro-B Natriuret Pep 86 Total Protein 7.5 Albumin 4.2 Globulin 3.3 Albumin/Globulin Ratio 1.3 Lipase 76 Procalcitonin COVID-19 PCR 01/09/20 01/09/20 01/09/20 12:48 13:17 13:47 WBC RBC Hgb Hct MCV MCH MCHC RDW Plt Count Neut % (Auto) Lymph % (Auto) [place] % (Auto) Eos % (Auto) Baso % (Auto) Neut # (Auto) Lymph # (Auto) [place] # (Auto) Eos # (Auto) Baso # (Auto) PT INR APTT D-Dimer 2356 H Sodium Potassium Chloride Carbon Dioxide BUN Creatinine Estimated GFR BUN/Creatinine Ratio Glucose Calcium Total Bilirubin AST ALT Alkaline Phosphatase Total Creatine Kinase CK-MB (CK-2) CK-MB (CK-2) Rel Index Troponin I NT-Pro-B Natriuret Pep Total Protein Albumin Globulin Albumin/Globulin Ratio Lipase Procalcitonin < 0.05 COVID-19 PCR Negative Assessment & Plan Assessment & Plan narrative: This is a 79-year-old female patient who presents to the ER with recurrent chest pain described as an elephant sitting on her chest. She has had previous episodes but not of this intensity or duration. She states she has had these symptoms on and off for years with no exacerbating or relieving factors. She reports also complaints of upper back pain and bilateral leg weakness for 3 days. 1. Chest pain, acute, present on admission, active -the patient describes having previous episodes of similar chest pain but this episode is more severe and longer in duration. Resolved upon arrival to the ER. -the pain is a pressure-like sensation of and is nonradiating, nonpleuritic without associated palpitations, nausea, shortness of breath or diaphoresis. -12 lead EKG is sinus tachycardia at 106 without ectopy, ST or T-wave changes, no evidence of infarct, unchanged from prior tracing. -total CK is 48 and troponin is less than 0.012. ProBNP is 86. Will obtain serial troponins. -ordered nitroglycerin 0.4 mg sublingual every 5 minutes x3 as needed for chest pain. -ordered morphine 2 mg IV as needed for chest pain. -ordered aspirin 81 mg daily. 2. Hiatal hernia, present on admission, active -CT scan identifies moderate to large hiatal hernia. -patient states she is aware of her history of hiatal hernia is made dietary accommodations. -she denies chest pain being associated with eating and denies acid reflux or acid taste in her mouth. -ordered Protonix 40 mg IV x1 now, ordered famotidine 20 mg by mouth twice daily. 3. Hypertension, chronic, stable. -patient's blood pressure 141/78 on admission to the ER and is 134/77 after arrival on the acute care floor. -will continue patient's home regimen of lisinopril 10 mg daily. 4. Leg weakness, acute, present on admission, active -the patient describes leg weakness but denies vascular or neurologic claudication symptoms, strength is tested appears normal. -requested PT and OT to consult evaluate and treat. VTE prophylaxis: Enoxaparin IV fluid: Saline lock Diet: Heart healthy Code status: Full code, the patient designates her daughter to be surrogate decision maker. COVID-19 COVID-19 status: Negative Result date/Date tested (Pos, Neg/Pending): 01/09/20 Scores GCS Claudia coma scale eye opening: Spontaneous Claudia coma scale verbal response: Orientated [place] coma scale motor response: Obey commands Claudia coma scale total score: 15
[2020-01-09 20:06] LABS: Magnesium 2.3 mg/dL (1.6-2.3)
[2020-01-09 21:29] LABS: Troponin I < 0.012 ng/mL (0.01-0.034)
[2020-01-09] MEDS: PANTOPRAZOLE 40 MG VIAL IV (21:59)
[2020-01-09] MEDS: ASPIRIN EC 81 MG TABLET PO (22:00)
[2020-01-10 04:00] VITALS: BP 132/85; PULSE 85; RESP 18; TEMP 36.6; O2SAT 96
[2020-01-10 05:20] LABS: BUN Creatinine Ratio 20.8 (6-22); Blood Urea Nitrogen 15 mg/dL (7-17); Calcium 8.9 mg/dL (8.4-10.2); Carbon Dioxide 29 mmol/L (22-32); Chloride 105 mmol/L (98-107); Cholesterol 209 mg/dL (140-199); Estimated Glomerular Filt Rate > 60.0 mL/min (>60); Glucose 95 mg/dL (80-110); HDL Cholesterol 55 mg/dL (40-60); HEMOLYSIS < 15 (0-50); LDL Cholesterol Calculated 140 mg/dL (<100); Potassium 4.4 mmol/L (3.4-5.1); Sodium 134 mmol/L (137-145); Triglycerides 69 mg/dL (35-150)
[2020-01-10 07:55] VITALS: BP 158/79; PULSE 104; RESP 16; TEMP 36.8; O2SAT 97
[2020-01-10 09:32] VITALS: BP 158/79; PULSE 104
[2020-01-10] MEDS: lisinopriL 10 MG TABLET PO (09:32)
[2020-01-10] MEDS: ASPIRIN EC 81 MG TABLET PO (09:32)
[2020-01-10] MEDS: FAMOTIDINE 20 MG TABLET PO (09:33)
[2020-01-10] MEDS: ENOXAPARIN 40 MG/0.4 ML SYRINGE SUBCUT (09:36)
[2020-01-10 12:03] VITALS: BP 148/77; PULSE 83; RESP 16; TEMP 36.8; O2SAT 99
--- NOTE | 2020-01-10 12:15 | CM.DANOTE ---
Discharge Planning/Care Management DCP: assessment: case received, EMR reviewed and was updated by Dr. Kraus in Team Rounds. Met now with pt and introduced self and role. PT is an 79 year old female who admitted yesterday evening to care of hospitalist team. Payer: Medicare and [facility]. PCP: listed: Livia Kraus stated that [place] was being ruled out and pt would have a stress test today: scheduled for 1300. It this is WNL she will d/c to home. Dr. Kraus said she expects to have the results in by 1700 and d/c would be likely between 1700 - 1900. Discussed same with pt and JOSUE Baumann. Pt says she is surprised to know she may have heart trouble. I thought I was having respiratory problems and might have an infections. My legs have been feeling so weak and and I have felt very wobbly. H&P has noted plan for PT but no order was placed/ PT order is now obtained. Pt confirms she does not use any assistive device at baseline. Pt said she had not yet talked with Dr. Kraus and was hopeful that this would happen before she was discharged. Assured her that Dr. Kraus plans to see her at some point today, likely after the stress test results are in place. Pt's daughter who lives in [place] had planned to be here today and to take pt home. Pt also has reached out to her friend Justa Wu who will be available to take pt home if need be when she gets off work at 6PM. P: at this point: home this evening IF stress test is WNL. If pt is still here tomorrow DCP team will continue to follow. CM Discharge Assessment Start: 01/10/20 12:13 Freq: Status: Active Protocol: Document 01/10/20 12:14 ITV (Rec: 01/10/20 12:14 ITV [id number]) Discharge Planning Assessment Advance Directives? No History Provided By Patient,Medical Record Prior Living Arrangements House Household Members none Independent with ADL's Yes Is patient alert and oriented? Yes
--- NOTE | 2020-01-10 12:46 | PC.NURSE ---
Addendum entered by Ibis Lemus R.N. 01/10/20 14:01: Pt back from NM stress test at 1400. Original Note: Day Shift- Pt A&OX4, denies chest pain, pressure, nausea, shortness of breath. Does endorse BLE weakness that also was occurring prior to admission. Okay to give updates to pt's daughter Huyen, given at 0920 and left message with update at 1153. planner internship also in to see pt regarding transportation home. Pt left for NM stress test at 1245, pt had been NPO for 3 hours prior and had no caffeine today.
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
[2020-01-10 15:30] VITALS: BP 155/84; PULSE 88; RESP 18; TEMP 36.2; O2SAT 99
--- NOTE | 2020-01-10 18:22 | DI.NM.S_ITS ---
DATE OF SERVICE: PROCEDURE: Exercise perfusion study. DATE: 01/10/2020. INDICATIONS: Chest pain with underlying diabetes mellitus, hypertension, hyperlipidemia. RADIOPHARMACEUTICAL: 19.9 millicurie technetium-99m Myoview IV was injected at stress. Please note this is exercise stress perfusion study only. CARDIAC STRESS: The patient underwent exercise stress test under the supervision of an attending staff. She walked on Jose Enrique protocol for 2 minutes 59 seconds and achieved 114% of target heart rate and normal blood pressure response. No anginal symptoms. However, felt fatigued and tired. Baseline EKG revealed sinus rhythm with some PVCs. During stress, no convincing ischemic changes. The patient continues to have some PACs and PVCs without any ventricular tachycardia. RAW DATA: Significant breast shadow was seen. GATED STUDY: Stress LV ejection fraction 83 percent without any obvious wall motion abnormalities and lung heart ratio 0.29, which is within normal limits. MYOCARDIAL PERFUSION SCAN: Stress supine and stress prone images were compared to each other. There appears to be minimally decreased perfusion of apex. Fleming is moving well. Significant breast shadow was seen. Most likely we are dealing with breast tissue attenuation artifact or apical thinning. Normal wall motion goes against the diagnosis of previous transmural myocardial infarction. CONCLUSION: Apical perfusion defect as stated above with likely a possibility of breast tissue attenuation artifact or apical thinning. No obvious wall motion abnormalities. Left ventricular function is preserved. No ischemic EKG changes. Intermittent PACs and PVCs are seen. The patient achieved 4.6 METS of workload. Functional aerobic impairment positive 33%. Overall this is a low- risk exercise perfusion study. Rissa Fatima - LORRAINE/michael/wili doc#: [id number]/job#: [id number] dd: 01/10/2020 17:34:00 dt: 01/10/2020 18:14:00 DICTATING MD/COPIES TO: Clyde Samuel MD COPIES MNE: ALEKSANDR;
--- NOTE | 2020-01-10 18:24 | PC.NURSE ---
all belongings returned to patient. no complaints of chest pain, sob or nausea. IV and tele dc'd. pt will call pcp for follow up appointment.
--- NOTE | 2020-01-11 17:49 | P.DS_ITS ---
History of Present Illness History of Present Illness Date Patient Seen: 01/11/20 Chief complaint: Elephant Sitting On Chest,Weakness Narrative: Ms. Rissa Fatima is an 79-year-old female with a past medical history significant for rheumatic heart disease as a child, GERD, hypertension and h istory of SVT who presents to the ER with complaints of chest discomfort. The patient the patient reports chest pain that feels like an elephant sitting on her chest today that had all but resolved upon arrival to the emergency department. The patient endorses prior history of similar chest discomforts occurring on and off for many years. She describes no exacerbating or relieving factors. She describes associated upper back pain and leg weakness occurring with episodes along with leg weakness for 3 days. She denies complaints of shortness of breath, nausea or diaphoresis. She has had no recent illness and denies fevers or chills nasal congestion or sore throat. She has chest pain as above and reports no palpitations however she does endorse a history of elevated heart rate secondary to rheumatic fever as a child. She has had no reports of abdominal pain though she does have a history of gastric reflux. She denies changes in bowel habits and has had no urinary complaints. Patient is ambulatory and uses no assistive devices. Upon arrival the ER the patient has a temperature 98.4?, heart rate of 116, blood pressure 141/78, respiratory rate of 20 saturating 98% on room air. Chest x-ray is obtained which shows a moderate to large hiatal hernia and lungs are clear. A CTA is obtained again read demonstrating moderately large hiatal hernia and no pulmonary embolism. Heart is described as normal. Twelve lead EKG finds sinus tachycardia at 1:06 a.m. without ectopy, no ST or T-wave changes, no evidence of infarct, unchanged from prior tracing. On laboratory analysis she has a white count of 7.9, hemoglobin of 12.0, hematocrit 35.8, platelets of 390. No shift. She has a PT of 10.8, INR 0.9 and PTT of 30. On chemistry she has a sodium of 132, potassium 4.9, BUN of 19 and creatinine 0.87. Her nonfasting glucose 122. Liver functions all within normal limits and she has lipase of 76. Her total CK is 48 troponin is less than 0.012. ProBNP is 86 and procalcitonin is negative. The patient is admitted to the hospitalist service for chest pain. Discharge Providers Provider Date of admission: 01/09/20 16:35 Discharge Date: 01/10/20 Primary care physician: BONIFACIO Mccoy Consults: 01/09/20 19:45 Consult to Discharge Planning Routine Comment: 01/10/20 12:13 Consult to Physical Therapy Evaluate & Treat Comment: Physician Instructions: Evaluate and Treat Discharge provider: Iva Kraus MD Summary Hospital Course Discharge Diagnosis: 1. Chest pain, noncardiac 2. Large hiatal hernia 3. Hypertension Number for gastroesophageal reflux disease Hospital Course: Patient was admitted to the hospital for chest pain. She underwent a CT angio of the chest in the emergency department which confirmed a large hiatal hernia. The patient had no further chest pain during the hospital stay Patient underwent nuclear stress test which showed no evidence of reversible ischemia. She was deemed appropriate for discharge and arrangements were made for her to discharge home. Patient was instructed to follow-up with primary care physician to determine whether further evaluation of her large hiatal hernia should be entertained. In addition she was placed on Pepcid for control of symptoms. Status at Discharge Cognitive/behavioral status at discharge: oriented Functional status at discharge: independent ambulation Overall status at discharge: patient is back to baseline Time Spent with Patient Time spent: Less than 30 minutes Exam Vital Signs (past 8 hours): Oxygen Delivery Method Room Air Oxygen Flow Rate 0 Narrative Exam Narrative: Delightful female lying in bed in no obvious distress Lungs: Clear to auscultation Cardiac exam: Regular rate and rhythm normal S1-S2 Abdomen: Soft nontender nondistended Extremities: No edema Objective Labs Result Diagrams: 01/09/20 12:48 01/10/20 04:45 [facility] Medical History (Updated 01/10/20 @ 08:27 by BONIFACIO Merlos) GERD (gastroesophageal reflux disease) Hypertension Osteoporosis Rheumatic fever SVT (supraventricular tachycardia) Surgical History (Updated 01/10/20 @ 08:27 by BONIFACIO Merlos) History of appendectomy Family History (Updated 01/10/20 @ 08:29 by BONIFACIO Merlos) Father Alcoholic Noel aneurysm Mother Rheumatoid arthritis Grandmother Angina pectoris Coronary artery disease Grandmother Leukemia Social History household members: none Smoking Status: Never smoker Discharge Assessment & Plan Assessment and Plan Assessment: 1. Noncardiac chest 2. Large hiatal hernia 3. Gastroesophageal reflux 4. hypertension Plan of Treatment: Patient is discharged home Medications as prescribed Follow-up with primary care provider her for evaluation of her large hiatal hernia Discharge Plan Discharge Plan Patient Disposition: Home Discharge orders & Medications Prescriptions: New famotidine [Pepcid AC] 20 mg Tablet 20 mg PO DAILY 30 Days RF: 0 Continued hydrocodone-acetaminophen 5-325 mg tablet 1 tab PO Q4-6H PRN (Reason: pain) Qty: 14 RF: 0 valacyclovir 1 gram tablet 1 PO DAILY RF: 0 lisinopril 10 mg tablet 10 mg PO DAILY RF: 0 Restasis 0.05 % dropperette 1 drp ophthalmic (eye) DAILY RF: 0 Follow up/Referrals: Livia Olivares ARNP [Primary Care Provider] - Discharge Health Status Multidrug resistant organism: No MDRO Diet/Activity/Treatments Diet: Low-sodium and Low-cholesterol Discharge Data Primary Care Provider: Livia Olivares Attending Provider: Iva Kraus
== END 2020-01-10 18:24 | disposition home or self-care (01) ==
LOC: ED 15:07 → AC 16:37
PROVIDERS: Nurse Practitioner Adult Health; Admitting Provider Internal Medicine; Emergency Provider Emergency Medicine; PCP Nurse Practitioner Family; Referring Provider Emergency Medicine; Visit Provider Internal Medicine
DX: R07.9 Chest pain, unspecified (principal); Z11.59 Encounter for screening for other viral diseases; R53.1 Weakness; K44.9 Diaphragmatic hernia without obstruction or gangrene; I10 Essential (primary) hypertension; K21.9 Gastro-esophageal reflux disease without esophagitis
CPT/HCPCS: 36415; 71045; 71275; 78451; 80048; 80053; 80061; 82550; 83690; 83735; 83880; 84145; 84484; 85025; 85379; 85610; 85730; 87635; 93005; 93010; 93017; 96361; 96372; 96374; 97161; 99282; 99284; G0378; A9270; A9502; C9113; J1650; Q9967

== ENCOUNTER → 2020-04-19 13:08 | Outpatient (CLI) | payer MEDICARE, OTHER, SELFPAY ==
--- NOTE | 2020-04-19 | DI.RAD.S_ITS ---
PROCEDURE: XR DEXA AXIAL SKELETON INDICATIONS: Age-related osteoporosis without current pathologi COMPARISON: None. FINDINGS: This blank DEXA report has been sent in error by the PACS system. The correct and complete report will be forthcoming in 1-2 days. Thank you for your patience and understanding. Dictated by: Forrest Hernandez M.D. on 04/19/2020 at 15:36 Approved by: Forrest Hernandez M.D. on 04/19/2020 at 15:36
== END ==
PROVIDERS: PCP Nurse Practitioner Family; Referring Provider Nurse Practitioner Family; Visit Provider Nurse Practitioner Family
DX: M81.0 Age-related osteoporosis without current pathological fracture (principal); Z78.0 Asymptomatic menopausal state; Z82.62 Family history of osteoporosis
CPT/HCPCS: 77080

== ENCOUNTER 2020-07-28 08:30 | Emergency (ER) | payer MEDICARE, OTHER, SELFPAY ==
[2020-07-28 08:39] VITALS: PULSE 101; RESP 21; O2SAT 98
--- NOTE | 2020-07-28 08:42 | ED.CHESTPAIN ---
HPI - Chest Pain General Chief Complaint: Upper Respiratory Symptoms Stated Complaint: chest congestion Time Seen by Provider: 07/28/20 08:37 Source: patient Mode of arrival: Ambulatory Limitations: no limitations History of Present Illness HPI narrative: 80F nonsmoker with history of hypertension and recurrent ?bronchial problems ?presents from the walk-in clinic for evaluation of about a week's worth of chest congestion and burning, though she states she really isn't having any symptoms right now. She states that sometimes it is there and sometimes it goes away and there is no obvious provocation or palliation of that burning sensation. She is not dizzy nor weak or lightheaded. She denies any difficulty swallowing. She denies any current chest pain or pressure. She does state that she was short of breath last night and has been frequently at night when she lays down. She denies any weight gain or swelling her lower extremities. She denies any history of blood clot or cancer. She has had no fever or chills and denies any cough. She denies nausea, vomiting or diarrhea. MD complaint: other Onset (ago): day(s) Duration: intermittent Pain location: epigastric Severity: mild Quality: other Pain radiation: none Relieving factors: nothing Exacerbating factors: nothing Associated symptoms: dyspnea Treatments prior to arrival chest pain: none Related Data On Oral Contraceptives: No Home Medications Medication Instructions Recorded Confirmed Restasis 1 drp OPHTHALMIC (EYE) DAILY 01/09/20 07/28/20 lisinopril 10 mg PO DAILY 01/09/20 07/28/20 valacyclovir 1 PO DAILY 01/09/20 07/28/20 Previous Rx's Medication Instructions Recorded hydrocodone-acetaminophen 1 tab PO Q4-6H PRN #14 tab 12/26/17 Allergies Allergy/AdvReac Type Severity Reaction Status Date / Time Penicillins [PENICILLINS] Allergy Mild rash, Verified 07/28/20 08:43 itching Sulfa (Sulfonamide Allergy Unknown Verified 07/28/20 08:43 Antibiotics) [SULFA (SULFONAMIDE ANTIBIOTICS)] Review of Systems Constitutional Constitutional: Denies chills, Denies fatigue, Denies fever(s), Denies frequent falls, Denies lethargy and Denies weakness Eyes Eyes: Denies change in vision, Denies eye discharge, Denies irritation and Denies loss of vision ENT Ears, Nose, Mouth, and Throat: Denies change in voice, Denies dizziness, Denies neck pain, Denies sore throat and Denies throat swelling Cardiovascular Cardiovascular: Denies chest pain, Denies irregular heart rhythm, Denies lightheadedness, Denies palpitations, Reports dyspnea, Denies dyspnea on exertion and Denies orthopnea Respiratory Respiratory: Denies cough, Reports dyspnea, Denies dyspnea on exertion and Denies wheezing Comments: burning in chest Gastrointestinal Gastrointestinal: Denies abdominal pain, Denies change in bowel habits, Denies diarrhea, Denies nausea and Denies vomiting Musculoskeletal Musculoskeletal: Denies neck pain and Denies numbness Integumentary/Breasts Skin/Breast: Denies pruritus, Denies erythema, Denies rash and Denies wounds Neurologic Neurologic: Denies behavioral changes, Denies confusion, Denies dizziness, Denies frequent falls, Denies loss of vision, Denies numbness and Denies weakness Psychiatric Psychiatric: Denies anxiety, Denies behavioral changes, Denies confusion, Denies depression, Denies homicidal ideation and Denies suicidal ideation Endocrine Endocrine: Denies fatigue, Denies flushing and Denies palpitations Hematologic/Lymphatic Hematologic/Lymphatic: Denies easy bruising Allergic/Immunologic Allergic/Immunologic: Denies urticaria, Denies throat swelling and Denies wheezing Patient History Medical History (Updated 07/28/20 @ 09:46 by Marcel Boles DO) GERD (gastroesophageal reflux disease) Hypertension Osteoporosis Rheumatic fever SVT (supraventricular tachycardia) Surgical History (Updated 01/10/20 @ 08:27 by BONIFACIO Merlos) History of appendectomy Family History (Updated 01/10/20 @ 08:29 by BONIFACIO Merlos) Father Alcoholic Noel aneurysm Mother Rheumatoid arthritis Grandmother Angina pectoris Coronary artery disease Grandmother Leukemia Social History household members: none Smoking Status: Never smoker Smoking Status: Never smoker alcohol intake frequency: a few times a week Substance Use Type: does not use Exam Narrative Exam Narrative: GENERAL: [80] year old patient appears stated age. Well-developed patient, in mild distress. Anxious HEAD: Atraumatic. Normocephalic. EYES: Pupils equal round and reactive. Extraocular motions intact. No scleral icterus. No injection or drainage. ENT: Nose without bleeding, purulent drainage. Throat without erythema, tonsillar hypertrophy or exudate. Airway patent. NECK: Trachea midline. Non tender CARDIOVASCULAR: Regular rate and rhythm without murmurs, gallops, or rubs. RESPIRATORY: Clear to auscultation. Breath sounds equal bilaterally. No wheezes, rales, or rhonchi. GASTROINTESTINAL: Abdomen soft, non-tender, nondistended. EXTREMITIES: No edema or joint tenderness. BACK: Nontender without deformity or crepitance. No flank tenderness. NEURO: AOx3. SKIN: No rash or erythema of visible areas Initial Vital Signs Initial Vital Signs: Vital Signs Pulse Rate 101 H 07/28/20 08:39 Respiratory Rate 21 07/28/20 08:39 Pulse Oximetry 98 07/28/20 08:39 Course Orders Ordered: ED Orders 07/28/20 08:41 XR chest 2V Stat 07/28/20 08:47 Complete Blood Count AUTO DIFF Stat Comprehensive Metabolic Panel Stat Magnesium Stat NT-proBNP (BNP-Adult 18+) Stat Troponin & CK Cardiac Panel Stat 07/28/20 08:54 D Dimer Stat 07/28/20 08:55 Ictotest Urine Stat 07/28/20 09:20 COVID19 -Nasal swab/Pre-Proc Stat Sodium Chloride (Normal Saline 0.9%) 1,000 mls @ 125 mls/hr IV CONT MUKESH Last Admin: 07/28/20 09:07 Dose: 125 mls/hr Documented by: [email or web address] Discontinued Medications Aspirin (Aspirin 81 Mg Chew Tab) 324 mg PO NOW ONE Stop: 07/28/20 08:41 Last Admin: 07/28/20 09:17 Dose: Not Given Documented by: [email or web address] Vital Signs Vital signs: Vital Signs - 8 hr 07/28/20 08:39 07/28/20 08:43 07/28/20 09:01 Temperature 97.7 F Pulse Rate 101 H 100 H 82 Respiratory Rate 21 20 28 H Blood Pressure 189/85 H Pulse Oximetry 98 98 98 MDM - Chest Pain Lab Data Result diagrams: 07/28/20 08:47 07/28/20 08:47 Labs: Lab Results 07/28/20 07/28/20 07/28/20 Range/Units 08:47 08:47 08:54 WBC 5.2 (4.5-11.0) X10^3/uL RBC 4.17 (4.0-5.2) X10^6/uL Hgb 11.2 L (12.0-16.0) g/dL Hct 35.5 L (36-46) % MCV 85.3 (80-100) fL MCH 27.0 (26-34) PG MCHC 31.7 (30-36) % RDW 19.0 H (11.6-14.8) % Plt Count 336 (150-400) X10^3/uL Neut % (Auto) 59.0 (50-75) % Lymph % (Auto) 23.9 L (25-40) % Emanuel % (Auto) 12.6 (3-14) % Eos % (Auto) 3.4 (2-4) % Baso % (Auto) 1.1 (0-2) % Neut # (Auto) 3100 (1351-5179) /uL Lymph # (Auto) 1200 (1409-0385) /uL Emanuel # (Auto) 600 (0-900) /uL Eos # (Auto) 200 (0-450) /uL Baso # (Auto) 100 (0-100) /uL D-Dimer 395 H (<230) ng/mL Sodium 137 (137-145) mmol/L Potassium 4.5 (3.4-5.1) mmol/L Chloride 104 (98-107) mmol/L Carbon Dioxide 27 (22-32) mmol/L BUN 17 (7-17) mg/dL Creatinine 0.94 (0.52-1.04) mg/dL Estimated GFR 57.0 L (>60) mL/min BUN/Creatinine Ratio 18.1 (6-22) Glucose 82 (80-110) mg/dL Calcium 9.8 (8.4-10.2) mg/dL Magnesium 2.4 H (1.6-2.3) mg/dL Total Bilirubin 0.3 (0.2-1.3) mg/dL AST 28 (14-36) IU/L ALT 15 (<35) IU/L Alkaline Phosphatase 98 (38-126) U/L Total Creatine Kinase 60 (30-135) U/L CK-MB (CK-2) TNP CK-MB (CK-2) Rel Index TNP Troponin I < 0.012 (0.01-0.034) ng/mL NT-Pro-B Natriuret Pep 123 (<450) pg/mL Total Protein 7.5 (6.3-8.2) g/dL Albumin 4.1 (3.5-5.0) g/dL Globulin 3.4 (1.7-4.1) g/dL Albumin/Globulin Ratio 1.2 (1.0-2.8) Ur Bilirubin Confirm (Negative) SARS-CoV-2 (PCR) (Negative) 07/28/20 07/28/20 Range/Units 08:55 09:20 WBC (4.5-11.0) X10^3/uL RBC (4.0-5.2) X10^6/uL Hgb (12.0-16.0) g/dL Hct (36-46) % MCV (80-100) fL MCH (26-34) PG MCHC (30-36) % RDW (11.6-14.8) % Plt Count (150-400) X10^3/uL Neut % (Auto) (50-75) % Lymph % (Auto) (25-40) % Emanuel % (Auto) (3-14) % Eos % (Auto) (2-4) % Baso % (Auto) (0-2) % Neut # (Auto) (4340-9728) /uL Lymph # (Auto) (0646-9105) /uL Emanuel # (Auto) (0-900) /uL Eos # (Auto) (0-450) /uL Baso # (Auto) (0-100) /uL D-Dimer (<230) ng/mL Sodium (137-145) mmol/L Potassium (3.4-5.1) mmol/L Chloride (98-107) mmol/L Carbon Dioxide (22-32) mmol/L BUN (7-17) mg/dL Creatinine (0.52-1.04) mg/dL Estimated GFR (>60) mL/min BUN/Creatinine Ratio (6-22) Glucose (80-110) mg/dL Calcium (8.4-10.2) mg/dL Magnesium (1.6-2.3) mg/dL Total Bilirubin (0.2-1.3) mg/dL AST (14-36) IU/L ALT (<35) IU/L Alkaline Phosphatase (38-126) U/L Total Creatine Kinase (30-135) U/L CK-MB (CK-2) CK-MB (CK-2) Rel Index Troponin I (0.01-0.034) ng/mL NT-Pro-B Natriuret Pep (<450) pg/mL Total Protein (6.3-8.2) g/dL Albumin (3.5-5.0) g/dL Globulin (1.7-4.1) g/dL Albumin/Globulin Ratio (1.0-2.8) Ur Bilirubin Confirm Negative (Negative) SARS-CoV-2 (PCR) Negative (Negative) Urine Dip Bedside Urine Glucose Negative Bedside Urine Bilirubin + 1 Bedside Urine Ketone - Negative Urine Specific Beltrami 1.030 Bedside Urine Occult Blood - Negative Bedside Urine pH 6 Bedside Urine Protein - Negative Bedside Urine Urobilinogen - Negative Bedside Urine Nitrite - Negative Bedside Urine Leukocytes - Negative Esterase Imaging Data Chest x-ray: Radiologist's Impression: [address] [id number] ReportSigned Patient: Rissa Fatima [facility]#: [id number]: 8Acct:[id number]/Sex: 80 / FDate of Service: 07/28/20Loc: EDAccession Number: [id number] Procedure: XR chest 2V Ordering Provider: Marcel Boles D.O. PROCEDURE: XR CHEST 2V INDICATIONS: Short of breath TECHNIQUE: 2 views of the chest were acquired. COMPARISON: [facility], CT, CT ANGIO CHEST PE PROTOCOL, 01/09/2020, 13:49. [facility], CR, XR CHEST 2 VIEWS, 11/25/2018, 11:50. [facility], CR, XR CHEST 1V, 01/09/2020, 12:57. FINDINGS: Surgical changes and devices: None. Lungs and pleura: Lungs are clear. No pleural effusions or pneumothorax. Mediastinum: Mediastinal contours are normal. Heart size is normal. Atherosclerotic calcification of the aortic arch is noted. There is a moderate hiatal hernia. Bones and chest wall: No suspicious bony abnormalities. Accentuated thoracic kyphosis is seen. Age-appropriate bony degenerative changes are seen. Soft tissues appear unremarkable. IMPRESSION: No acute cardiopulmonary process is seen. Dictated by: Jefferson Yanez M.D. on 07/28/2020 at 8:14 Approved by: Jefferson Yanez M.D. on 07/28/2020 at 8:15 MDM Narrative Medical decision making narrative: Multiple etiologies for patient's symptoms considered including: [Bronchitis versus COVID versus CHF versus pulmonary embolism versus cardiac ischemia versus other. Symptoms are completely non-existent at this point time, labs are very reassuring. EKG is nonischemic. D-dimer is negative when age corrected.] Patient's symptoms improved over duration of stay with above-stated therapies. Findings and discharge diagnosis discussed with patient/family followed by verbalization of understanding Return precautions discussed with patient/family whom verbalize understanding. Discharge Plan Departure Patient Disposition: Home Clinical Impression: Acute dyspnea, Burning in the chest Instructions: DI for Shortness of Breath Activity Restrictions/Additional Instructions: *You have been diagnosed with [burning in chest and shortness of breath, there is no evidence of pneumonia, heart attack, blood clot or other serious or significant diagnosis.] *What to do: *Please continue to take your regular medications as directed. [ ] New medication prescriptions sent to your pharmacy: [ ] [ ] New medication written as a paper prescription [ ] No new medications given here, but consider taking over the counter antihistamines and postnasal drip may be playing a role in your symptoms *Please follow up with your primary care provider in 2-3 days, call for an appointment. Let them know you were seen in the Emergency Department and that we ask that you be seen in follow up. We will electronically transmit a record of today's note if your PCP is in our system *If you do not have a primary care provider please contact the [facility] Resource line at [phone]. They will ask some questions about your medical history and help get you set up with a doctor in the community. *Return to Emergency Department if you should have any new, worsening or concerning symptoms, such as [fever greater than 101 F, shaking chills, worsening pain, persistent vomiting or other bothersome symptoms] Prescriptions: No Action hydrocodone-acetaminophen 5-325 mg tablet 1 tab PO Q4-6H PRN (Reason: pain) Qty: 14 RF: 0 valacyclovir 1 gram tablet 1 PO DAILY RF: 0 lisinopril 10 mg tablet 10 mg PO DAILY RF: 0 Restasis 0.05 % dropperette 1 drp ophthalmic (eye) DAILY RF: 0 Referrals: Livia Olivares, BONIFACIO [Primary Care Provider] -
[2020-07-28 08:43] VITALS: BP 189/85; PULSE 100; RESP 20; TEMP 36.5; O2SAT 98; BMI 29.2
[2020-07-28 08:53] LABS: Add Manual Diff / Slide Review NO; Basophils Absolute Auto 100 /uL (0-100); Basophils Percent Auto 1.1 % (0-2); Eosinophils Absolute Auto 200 /uL (0-450); Eosinophils Percent Auto 3.4 % (2-4); Hematocrit 35.5 % (36-46); Hemoglobin 11.2 g/dL (12.0-16.0); Lymphocytes Absolute Auto 1200 /uL (1100-4500); Lymphocytes Percent Auto 23.9 % (25-40); Mean Corpuscular HGB Conc 31.7 % (30-36); Mean Corpuscular Volume 85.3 fL (80-100); Monocytes Absolute Auto 600 /uL (0-900); Monocytes Percent Auto 12.6 % (3-14); Neutrophils Absolute Auto 3100 /uL (1500-7000); Platelet Count 336 X10^3/uL (150-400); Red Blood Cell Count 4.17 X10^6/uL (4.0-5.2); White Blood Cell Count 5.2 X10^3/uL (4.5-11.0)
[2020-07-28 09:01] VITALS: PULSE 82; RESP 28; O2SAT 98
[2020-07-28 09:01] LABS: Ictotest Urine Negative (Negative)
[2020-07-28 09:06] LABS: Alanine Aminotransferase 15 IU/L (<35); Albumin 4.1 g/dL (3.5-5.0); Albumin Globulin Ratio 1.2 (1.0-2.8); Alkaline Phosphatase 98 U/L (38-126); Aspartate Aminotransferase 28 IU/L (14-36); BUN Creatinine Ratio 18.1 (6-22); Bilirubin Total 0.3 mg/dL (0.2-1.3); Blood Urea Nitrogen 17 mg/dL (7-17); Calcium 9.8 mg/dL (8.4-10.2); Carbon Dioxide 27 mmol/L (22-32); Chloride 104 mmol/L (98-107); Creatine Kinase 60 U/L (30-135); Globulin 3.4 g/dL (1.7-4.1); Glucose 82 mg/dL (80-110); HEMOLYSIS < 15 (0-50); Magnesium 2.4 mg/dL (1.6-2.3); Potassium 4.5 mmol/L (3.4-5.1); Sodium 137 mmol/L (137-145); Total Protein 7.5 g/dL (6.3-8.2)
[2020-07-28] MEDS: SODIUM CHLORIDE 0.9% 1,000 ML 125 ML IV (09:07)
[2020-07-28 09:08] LABS: D Dimer 395 ng/mL (<230)
--- NOTE | 2020-07-28 09:17 | PC.NURSE ---
Pt sts she took 2 full strength ASA at 0200 this AM, ED ASA order cancelled
[2020-07-28 09:18] LABS: NT-proBNP (BNP-Adult 18+) 123 pg/mL (<450); Troponin I < 0.012 ng/mL (0.01-0.034)
[2020-07-28 09:30] VITALS: PULSE 82; RESP 14; O2SAT 97
[2020-07-28 09:39] LABS: COVID19 -Nasal RAPID Negative (Negative)
[2020-07-28 09:48] VITALS: BP 177/74; PULSE 87; RESP 36; O2SAT 98
== END 2020-07-28 09:55 | disposition home or self-care (01) ==
PROVIDERS: Emergency Provider Emergency Medicine; PCP Nurse Practitioner Family
DX: R06.00 Dyspnea, unspecified (principal); R07.89 Other chest pain; R06.02 Shortness of breath; Z20.822 Contact with and (suspected) exposure to COVID-19
CPT/HCPCS: 36415; 71046; 80053; 81003; 82550; 83735; 83880; 84484; 85025; 85379; 87635; 93005; 96360; 99284; C9803

== ENCOUNTER → 2020-12-28 09:59 | Outpatient (CLI) | payer MEDICARE, OTHER, SELFPAY ==
[2020-12-28 11:43] LABS: COVID19 -Nasal RAPID Negative (Negative)
== END ==
PROVIDERS: PCP Nurse Practitioner Family; Visit Provider Physician Assistant
DX: Z20.822 Contact with and (suspected) exposure to COVID-19 (principal)
CPT/HCPCS: 87635; C9803

== ENCOUNTER → 2021-02-04 08:16 | Outpatient (CLI) | payer MEDICARE, OTHER, SELFPAY ==
[2021-02-04 11:30] LABS: COVID19 -Nasal RAPID Negative (Negative)
== END ==
PROVIDERS: PCP Nurse Practitioner Family; Visit Provider Physician Assistant
DX: Z20.822 Contact with and (suspected) exposure to COVID-19 (principal)
CPT/HCPCS: 87635; C9803

== ENCOUNTER → 2021-02-05 10:23 | Outpatient (CLI) | payer MEDICARE, OTHER, SELFPAY ==
--- NOTE | 2021-02-05 | DI.ECHO.S_ITS ---
[facility]---------+ [facility] +---------+ : : [address] [place] : : : : [id number] : : : : Phone: [phone] Echocardiogram Report + + :Name: AMY DOMINIQUE Study Date: 02/05/2021 Height: 61 in : :[facility] ReadingLocation: Weight: 154 lb : : Gender: Female BSA: 1.7 m2 : :: 1940 Age: 81 yrs BP: 160/78 mmHg: :Reason For Study: SHORTNESS OF BREATH : :Ordering Physician: VINICIO, : :ZITA Performed By: Ellen Chavez : :Referring: ZITA MOONEY : + + Interpretation Summary The left ventricle is normal in size and wall thickness. The ejection fraction is estimated to be 60-65%. The right ventricle is normal in size and function. There is moderate mitral regurgitation. There is mild tricuspid regurgitation. The right ventricular systolic pressure is estimated to be at least 31.5 mmHg based on an estimated right atrial pressure of 3 mm Hg. Procedure: A two-dimensional transthoracic echocardiogram with color flow and Doppler was performed. The study quality was technically adequate. There is no prior echocardiogram noted for this patient. The patient was in sinus rhythm with heart rates between 59-77 bpm during the exam. Left Ventricle: The left ventricle is normal in size and wall thickness. There is no thrombus. The ejection fraction is estimated to be 60-65%. There are no focal wall motion abnormalities. MV E/A: 1.5 Med Peak E' Gilberto: 8.5 cm/sec E/E' med: 11.2. No significant diastolic dysfunction. Right Ventricle: The right ventricle is normal in size and function. Atria: The left atrial size is normal. Right atrial size is normal. There is no Doppler evidence for an interatrial shunt. Mitral Valve: There is mild mitral annular calcification. There is moderate mitral regurgitation. Aortic Valve: The aortic valve is trileaflet. The aortic valve opens well. There is mild aortic valve sclerosis. There is no aortic valve stenosis. No aortic regurgitation is present. Tricuspid Valve: The tricuspid valve is normal. There is mild tricuspid regurgitation. The right ventricular systolic pressure is estimated to be at least 31.5 mmHg based on an estimated right atrial pressure of 3 mm Hg. Pulmonic Valve: The pulmonic valve leaflets are thin and pliable; valve motion is normal. There is no pulmonic valvular regurgitation. Great Vessels: The aortic root is normal size. The dimensions of the ascending aorta are normal. The IVC is of normal diameter and collapses greater than 50% with a sniff. This suggests a low right atrial pressure of 3 mm Hg. Pericardium/ Pleura There is no pericardial effusion. There is no pleural effusion. MMode/2D Measurements & Calculations LVIDd: 4.2 cm LVOT diam: 1.9 cm LVIDs: 2.7 cm Ao root diam: 2.7 cm FS: 35.7 % asc Aorta Diam: 2.9 cm IVSd: 0.95 cm LVPWd: 0.69 cm LV pulido. diameter/BSA (cm/m^2): 2.5 LV sys. diameter/BSA (cm/m^2): 1.6 LA A2 area: 15.9 cm2 RA long axis: 4.9 cm LA A4 area: 18.7 cm2 RA area: 14.9 cm2 LA length (vol): 5.2 cm RA vol: 38.9 ml LA vol: 48.6 ml RA : 23.0 ml/m2 LA vol index: 28.7 ml/m2 IVC diam: 1.8 cm RVD1 (basal): 3.0 cm TAPSE: 1.9 cm Doppler Measurements & Calculations Ao V2 max: 164.5 cm/sec LVOT Max Gilberto: 83.1 cm/sec Ao V2 mean: 108.1 cm/sec LV V1 max P.8 mmHg Ao max P.8 mmHg LV V1 VTI: 20.3 cm Ao mean P.4 mmHg [place](I,D): 1.4 cm2 Ao V2 VTI: 40.3 cm [place](V,D): 1.4 cm2 sev ratio: 0.50 [place] indexed to BSA (cm^2/m^2): 0.83 MV E max gilberto: 95.0 cm/sec TR max gilberto: 266.8 cm/sec MV A max gilberto: 62.3 cm/sec TR max P.5 mmHg MV E/A: 1.5 PA V2 max: 78.7 cm/sec Med Peak E' Gilberto: 8.5 cm/sec PA V2 mean: 52.8 cm/sec E/E' med: 11.2 PA mean P.3 mmHg Lat Peak E' Gilberto: 8.5 cm/sec PA pr(Accel): 19.1 mmHg E/E' lat: 11.2 E/e' average: 11.2 MV dec time: 0.21 sec SV(LVOT): 56.5 ml Reading Physician:06:20 PM
--- NOTE | 2021-02-06 18:21 | DI.NM.S_ITS ---
DATE OF SERVICE: 02/05/2021 PROCEDURE: Exercise perfusion study. INDICATION: Shortness of breath, chest tightness with anginal symptoms. RADIOPHARMACEUTICAL: 26.3 millicurie technetium-99m Myoview IV was injected at stress and 25.7 millicurie technetium-99m Myoview IV was injected at rest. CARDIAC STRESS: The patient underwent exercise perfusion study under the supervision of an attending staff. She walked on Jose Enrique protocol for 5 minutes and 17 seconds, achieved 121 percent of target heart rate, MIGUELITO -19 percent, seven METs of workload. Baseline blood pressure 148/80. Peak blood pressure 200/80 mmHg. No anginal symptoms. Patient felt shortness of breath and leg fatigue. Baseline rhythm was sinus with nonspecific ST flattening in inferolateral leads. During stress there was worsening ST depression in inferolateral leads up to 1 mm horizontal with prolonged recovery. The patient had intermittent PACs and some PVCs without any sustained ventricular tachycardia or atrial fibrillation. There was enhanced chronotropic response. RAW DATA: There is increased subdiaphragmatic activity. Gut shadow seen near the inferior border of the heart. GATED STUDY: Resting LV ejection fraction 69 percent and stress LV ejection fraction is 79 percent without any obvious wall motion abnormalities. Resting end-diastolic volume 62 mL. TID ratio 0.74, which is within normal limits. Lung/heart ratio 0.29, which is within normal limits. MYOCARDIAL PERFUSION SCAN: Stress supine and resting supine, as well as stress prone images were compared to each other. Stress supine images revealed a small size, mildly decreased perfusion of inferior apex. Resting supine images revealed small size, mildly decreased perfusion of inferior wall and inferior apex. During stress prone images, inferior wall and inferior apical defect got normalized. There was normal myocardial perfusion during stress prone images. CONCLUSION: I will call this study a normal myocardial perfusion study with evidence of diaphragmatic tissue attenuation artifact and gut tissue attenuation artifact, which got resolved during stress prone images. Fair exercise tolerance. Enhanced chronotropic response. No anginal symptoms. The patient felt tired, like fatigue, and shortness of breath. Preserved left ventricular function. No complex arrhythmia seen. Overall from cardiac perspective, this is a low-risk myocardial perfusion scan. Rissa Fatima - Mariella/twan doc#: [id number]/job#: [id number] dd: 02/06/2021 17:19:00 dt: 02/06/2021 17:38:00 DICTATING MD/COPIES TO: Clyde Samuel MD COPIES MNE: ALEKSANDR;
== END ==
PROVIDERS: PCP Nurse Practitioner Family; Referring Provider Internal Medicine Cardiovascular Disease; Visit Provider Internal Medicine Cardiovascular Disease
DX: R07.89 Other chest pain; I08.3 Combined rheumatic disorders of mitral, aortic and tricuspid valves; R06.02 Shortness of breath
CPT/HCPCS: 78452; 93017; 93306; A9502

== ENCOUNTER 2023-02-08 10:38 | Emergency (ER) | payer OTHER, SELFPAY ==
[2023-02-08] VITALS (10 sets, daily range): BP systolic 161–171; BP diastolic 70–126; PULSE 76–90; RESP 14–22; TEMP 36.9; O2SAT 97–99; BMI 31.5
[2023-02-08] MEDS: ACETAMINOPHEN 325 MG TABLET 975 MG PO (12:53)
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
--- NOTE | 2023-02-08 12:58 | PC.NURSE ---
Pt's daughter aggressively approached the nurses station and began to demand that the doctor come in and see her mother immediately and that she has been waiting for over an hour to be seen. In attempt to de-escalate, I offered an explanation of why the doctor was delayed. Pt's daughter continued to demand to speak with doctor. Offered for daughter to speak with full charge bookkeeper to which daughter replied, I am not sure what that would accomplish, and declined speaking with full charge bookkeeper.
--- NOTE | 2023-02-08 13:03 | DI.RAD.S_ITS ---
PROCEDURE: XR CHEST 1V INDICATIONS: sore in low back/shoulders, hips. ambulating TECHNIQUE: One view of the chest was acquired. COMPARISON: [facility], CR, XR CHEST 2V, 07/28/2020, 9:03. [facility], CR, XR CHEST 1V, 01/09/2020, 12:57. FINDINGS: Surgical changes and devices: None. Lungs and pleura: Mildly prominent interstitium. No dense consolidation. No pleural effusion. Mediastinum: Aortic calcifications. Overall normal heart size. Bones and chest wall: Degenerative changes. IMPRESSION: Mildly prominent interstitium may represent senescent changes versus edema or atypical infection. No airspace consolidation or pleural effusion on this single view radiograph. Dictated by: Aaron Portillo M.D. on 02/08/2023 at 13:57 Approved by: Aaron Portillo M.D. on 02/08/2023 at 13:58
--- NOTE | 2023-02-08 13:03 | DI.RAD.S_ITS ---
PROCEDURE: XR LUMBAR SPINE 2-3V INDICATIONS: sore in low back/shoulders, hips. ambulating TECHNIQUE: 3 views of the lumbar spine were acquired. COMPARISON: [facility], MR, MR LUMBAR SPINE WITHOUT CONTRAST, 08/28/2021, 8:01. FINDINGS: Bones: Anterolisthesis, 9 mm of L3 on L4 and 1.2 cm of L4 on L5. Vertebral body heights are well maintained. Moderate spondylosis, with disc space height loss and facet arthropathy at multiple levels. Trace leftward spinal curvature. Soft tissues: Pelvic hyperdensities may be external. Another hyperdensity projects over the lumbosacral junction. Moderate to large fecal loading. Possible right upper quadrant calcification versus gallstone. IMPRESSION: Moderate spondylotic changes. L3 on L4 and L4 on L5 anterolisthesis. If there is high concern for further derangement, consider MRI evaluation. Dictated by: Aaron Portillo M.D. on 02/08/2023 at 13:52 Approved by: Aaron Portillo M.D. on 02/08/2023 at 13:54
--- NOTE | 2023-02-08 13:03 | DI.RAD.S_ITS ---
PROCEDURE: XR PELVIS 1-2V INDICATIONS: sore in low back/shoulders, hips. ambulating TECHNIQUE: 1 view(s) of the pelvis acquired. COMPARISON: None. FINDINGS: Bones: Dzdj-fz-ohlaczzk bilateral hip arthrosis. No displaced fracture or dislocation. Lumbosacral degenerative changes. Soft tissues: No suspicious calcifications. There is a hyperdensity projecting over L5. IMPRESSION: Xwcb-pz-maqihbto bilateral hip arthrosis. If there is high concern for further derangement, consider MRI evaluation. Dictated by: Aaron Portillo M.D. on 02/08/2023 at 13:55 Approved by: Aaron Portillo M.D. on 02/08/2023 at 13:56
== END 2023-02-08 14:41 | disposition home or self-care (01) ==
PROVIDERS: Emergency Provider Emergency Medicine; PCP Nurse Practitioner Family
DX: M54.50 Low back pain, unspecified (principal); M25.512 Pain in left shoulder; M25.511 Pain in right shoulder; M25.552 Pain in left hip; M25.551 Pain in right hip; V89.2XXA Person injured in unspecified motor-vehicle accident, traffic, initial encounter
CPT/HCPCS: 71045; 72100; 72170; 99283

== ENCOUNTER 2023-06-26 09:02 | Emergency (ER) | payer MEDICARE, OTHER, SELFPAY ==
[2023-06-26] VITALS (26 sets, daily range): BP systolic 138–174; BP diastolic 59–75; PULSE 72–113; RESP 14–26; TEMP 36.7–37; O2SAT 96–100
[2023-06-26 10:07] LABS: Add Manual Diff / Slide Review NO; Basophils Absolute Auto 100 /uL (0-100); Basophils Percent Auto 1.4 % (0-2); Eosinophils Absolute Auto 100 /uL (0-450); Eosinophils Percent Auto 2.6 % (2-4); Hematocrit 22.7 % (36-46); Lymphocytes Absolute Auto 1200 /uL (1100-4500); Lymphocytes Percent Auto 22.4 % (25-40); Mean Corpuscular HGB Conc 29.9 % (30-36); Mean Corpuscular Hemoglobin 21.3 PG (26-34); Mean Corpuscular Volume 71.3 fL (80-100); Monocytes Absolute Auto 700 /uL (0-900); Monocytes Percent Auto 13.5 % (3-14); Neutrophils Absolute Auto 3200 /uL (1500-7000); Neutrophils Percent Auto 60.1 % (50-75); Platelet Count 439 X10^3/uL (150-400); Red Blood Cell Count 3.18 X10^6/uL (4.0-5.2); Red Cell Distribution Width 19.3 % (11.6-14.8); White Blood Cell Count 5.4 X10^3/uL (4.5-11.0)
[2023-06-26 10:08] LABS: Hemoglobin 6.8 g/dL (12.0-16.0); Prothrombin Time 11.5 SECONDS (9.4-12.5)
[2023-06-26 10:11] LABS: PTT Partial Thromboplastin Tim 31 SECONDS (25.1-36.5)
[2023-06-26 10:13] LABS: Alanine Aminotransferase 12 IU/L (<35); Albumin 4.1 g/dL (3.5-5.0); Albumin Globulin Ratio 1.3 (1.0-2.8); Alkaline Phosphatase 81 U/L (38-126); Aspartate Aminotransferase 21 IU/L (14-36); BUN Creatinine Ratio 16.3 (6-22); Bilirubin Total 0.3 mg/dL (0.2-1.3); Blood Urea Nitrogen 14 mg/dL (7-17); Calcium 9.3 mg/dL (8.4-10.2); Carbon Dioxide 26 mmol/L (22-32); Chloride 104 mmol/L (98-107); Estimated Glomerular Filt Rate > 60 mL/min (>60); Globulin 3.1 g/dL (1.7-4.1); Glucose 96 mg/dL (80-110); HEMOLYSIS < 15 (0-50); Potassium 4.2 mmol/L (3.4-5.1); Sodium 135 mmol/L (137-145); Total Protein 7.2 g/dL (6.3-8.2)
--- NOTE | 2023-06-26 10:13 | ED_ITS ---
HPI - Dizziness General Chief Complaint: Dizziness Stated Complaint: dizzy, per pt anemia Time Seen by Provider: 06/26/23 09:17 Source: patient Mode of arrival: Ambulatory History of Present Illness HPI Narrative: 83-year-old female presents for anemia. Patient states that she went to her primary care doctor for progressive lightheadedness and shortness of breath. Outpatient labs at that time showed a hemoglobin of 7.0. Patient also states that she dropped off a stool sample that was negative for blood. She was referred to the emergency department for evaluation of her anemia. Last laboratory work was obtained 1 year ago with hemoglobin 12.0. Patient states that she has had intermittent anemia throughout her life as far back as when she was 11 years old. She states that she takes daily iron supplements that cause her to have black stools, however this is not unusual for her. She does take anti-inflammatories for arthritis. She was recently instructed by her primary care doctor to stop taking anti-inflammatories. She denies any abdominal pain, gross blood. Related Data Home Medications Medication Instructions Recorded Confirmed cyclosporine 0.05 % eye drops in a 1 drp ophthalmic (eye) DAILY 01/09/20 05/31/21 dropperette (Restasis) lisinopril 10 mg tablet 10 mg PO DAILY 01/09/20 05/31/21 valacyclovir 1 gram tablet 1 PO DAILY 01/09/20 05/31/21 Previous Rx's Medication Instructions Recorded hydrocodone 5 mg-acetaminophen 325 1 tab PO Q4-6H PRN pain #14 tabs 12/26/17 mg tablet benzonatate 100 mg capsule 100 mg PO BID PRN cough #20 caps 05/31/21 tramadol 50 mg tablet 50 mg PO Q6H PRN pain #10 tabs 02/08/23 Allergies Allergy/AdvReac Type Severity Reaction Status Date / Time Penicillins [PENICILLINS] Allergy Mild rash, Verified 06/26/23 09:11 itching Sulfa (Sulfonamide Allergy Unknown Verified 06/26/23 09:11 Antibiotics) [SULFA (SULFONAMIDE ANTIBIOTICS)] Review of Systems Review of Systems Narrative: See HPI Patient History Medical History Hypertension Osteoporosis SVT (supraventricular tachycardia) GERD (gastroesophageal reflux disease) Rheumatic fever Surgical History History of appendectomy Family History Father Alcoholic Noel aneurysm Mother Rheumatoid arthritis Grandmother Angina pectoris Coronary artery disease Grandmother Leukemia Social History household members: none Smoking Status: Never smoker Smoking Status: Never smoker alcohol intake frequency: holidays/special occasions only Substance Use Type: does not use Exam Initial Vital Signs Initial Vital Signs: Vital Signs Temperature 98.2 F 06/26/23 09:03 Pulse Rate 113 H 06/26/23 09:03 Respiratory Rate 15 06/26/23 09:03 Blood Pressure 165/68 H 06/26/23 09:03 Pulse Oximetry 98 06/26/23 09:03 Oxygen Delivery Method Room Air 06/26/23 09:03 Const: Awake, alert, no acute distress, nontoxic appearing Cardiac: regular rate, regular rhythm RESP: unlabored, clear bilaterally, no wheezing GI: Soft, nontender, nondistended, no rebound, no guarding MSK: Atraumatic, full range of motion, pulses equal Skin: Warm, Dry, intact, no rashes Neuro: AO x3, CN II-XII grossly intact, moves all extremities Course Orders Ordered: ED Orders 06/26/23 09:45 Complete Blood Count AUTO DIFF Stat Comprehensive Metabolic Panel Stat PTT Partial Thromboplastin [place] Stat Prothrombin Time INR Stat Type and Screen Stat transfuse [Packed Cells] Stat 06/26/23 10:44 Chest [XR chest 1V] Stat Discontinued Medications Ondansetron HCl (Ondansetron 4 Mg/2 Ml Inj) 4 mg IV NOW PRN PRN Reason: Nausea And Vomiting Pantoprazole Sodium (Pantoprazole 40 Mg Vial) 80 mg IV NOW ONE Stop: 06/26/23 09:12 Last Admin: 06/26/23 10:15 Dose: 80 mg Documented By: DANIEL Vital Signs Vital signs: Vital Signs - 8 hr 06/26/23 10:30 06/26/23 10:30 06/26/23 11:00 Temperature Pulse Rate 76 Respiratory Rate 19 Blood Pressure 157/70 H 153/72 H Pulse Oximetry 96 Oxygen Delivery Method 06/26/23 11:00 06/26/23 11:30 06/26/23 11:31 Temperature Pulse Rate 79 82 Respiratory Rate 24 Blood Pressure 142/59 H Pulse Oximetry 99 100 Oxygen Delivery Method 06/26/23 11:31 06/26/23 11:43 06/26/23 11:43 Temperature 98.6 F Pulse Rate 80 76 Respiratory Rate 17 18 Blood Pressure 139/63 139/63 Pulse Oximetry 100 Oxygen Delivery Method 06/26/23 11:43 06/26/23 12:00 06/26/23 12:00 Temperature Pulse Rate 77 76 Respiratory Rate 20 14 Blood Pressure 147/66 H Pulse Oximetry 100 97 Oxygen Delivery Method 06/26/23 12:06 06/26/23 12:07 06/26/23 12:07 Temperature 98.6 F Pulse Rate 72 79 Respiratory Rate 19 21 Blood Pressure 141/65 H 141/65 H Pulse Oximetry 99 Oxygen Delivery Method 06/26/23 12:22 06/26/23 12:22 06/26/23 12:22 Temperature 98.1 F Pulse Rate 77 78 Respiratory Rate 16 17 Blood Pressure 150/68 H 150/68 H Pulse Oximetry 99 Oxygen Delivery Method 06/26/23 12:30 06/26/23 12:30 06/26/23 12:57 Temperature Pulse Rate 80 81 Respiratory Rate 25 H 24 Blood Pressure 149/70 H Pulse Oximetry 99 97 Oxygen Delivery Method 06/26/23 12:57 06/26/23 12:58 06/26/23 13:00 Temperature 98.3 F Pulse Rate 80 Respiratory Rate 17 Blood Pressure 149/70 H 147/70 H 146/69 H Pulse Oximetry Oxygen Delivery Method 06/26/23 13:00 06/26/23 13:29 06/26/23 13:29 Temperature 98.6 F Pulse Rate 80 81 Respiratory Rate 26 H 20 Blood Pressure 152/67 H 152/67 H Pulse Oximetry 97 Oxygen Delivery Method 06/26/23 13:29 06/26/23 13:30 06/26/23 13:31 Temperature Pulse Rate 81 81 81 Respiratory Rate 24 17 24 Blood Pressure Pulse Oximetry 97 96 96 Oxygen Delivery Method Room Air 06/26/23 13:31 06/26/23 14:00 06/26/23 14:01 Temperature Pulse Rate 81 Respiratory Rate 24 Blood Pressure 174/69 H 160/69 H Pulse Oximetry 96 Oxygen Delivery Method 06/26/23 14:01 06/26/23 14:11 06/26/23 14:30 Temperature 98.5 F Pulse Rate 81 82 Respiratory Rate 19 18 Blood Pressure 160/69 H 161/75 H Pulse Oximetry 96 Oxygen Delivery Method 06/26/23 14:30 Temperature Pulse Rate 83 Respiratory Rate 18 Blood Pressure Pulse Oximetry 96 Oxygen Delivery Method Room Air MDM - Dizziness Differential Diagnosis Differential diagnosis: Likely adverse reaction to drug, benign paroxysmal positional vertigo and orthostatic hypotension Lab Data 06/26/23 09:45 06/26/23 09:45 Labs: Lab Results 06/26/23 Range/Units 09:45 WBC 5.4 (4.5-11.0) X10^3/uL RBC 3.18 L (4.0-5.2) X10^6/uL Hgb 6.8 L* (12.0-16.0) g/dL Hct 22.7 L (36-46) % MCV 71.3 L (80-100) fL MCH 21.3 L (26-34) PG MCHC 29.9 L (30-36) % RDW 19.3 H (11.6-14.8) % Plt Count 439 H (150-400) X10^3/uL Neut % (Auto) 60.1 (50-75) % Lymph % (Auto) 22.4 L (25-40) % [place] % (Auto) 13.5 (3-14) % Eos % (Auto) 2.6 (2-4) % Baso % (Auto) 1.4 (0-2) % Neut # (Auto) 3200 (4447-9774) /uL Lymph # (Auto) 1200 (6964-8131) /uL [place] # (Auto) 700 (0-900) /uL Eos # (Auto) 100 (0-450) /uL Baso # (Auto) 100 (0-100) /uL PT 11.5 (9.4-12.5) SECONDS INR 1.0 (0.9-1.3) APTT 31 (25.1-36.5) SECONDS Sodium 135 L (137-145) mmol/L Potassium 4.2 (3.4-5.1) mmol/L Chloride 104 (98-107) mmol/L Carbon Dioxide 26 (22-32) mmol/L BUN 14 (7-17) mg/dL Creatinine 0.86 (0.52-1.04) mg/dL Estimated GFR > 60 (>60) mL/min BUN/Creatinine Ratio 16.3 (6-22) Glucose 96 (80-110) mg/dL Calcium 9.3 (8.4-10.2) mg/dL Total Bilirubin 0.3 (0.2-1.3) mg/dL AST 21 (14-36) IU/L ALT 12 (<35) IU/L Alkaline Phosphatase 81 (38-126) U/L Total Protein 7.2 (6.3-8.2) g/dL Albumin 4.1 (3.5-5.0) g/dL Globulin 3.1 (1.7-4.1) g/dL Albumin/Globulin Ratio 1.3 (1.0-2.8) Blood Type O Positive Antibody Screen Negative Crossmatch See Detail MDM Narrative Medical decision making narrative: Months of progressive lightheadedness and dyspnea. Found to be anemic on outpatient labs taken earlier in the week. Denies use of blood thinners, denies history of abnormal Pap smear, colonoscopy, or mammogram, however she does admit that it has been many years since any of the screening exams has been performed. Patient just had negative stool sample for occult blood. Hemoglobin 6.8, we will order transfusion of 1 unit packed red blood cells. Patient hemodynamically stable, resting comfortably. Patient has received 1 unit of packed red blood cells, remains hemodynamically stable and in no acute distress. Based on the slow progressive nature of symptoms as well as lack of obvious bleeding source patient is stable for discharge home. She was counseled to follow up with Heme-Onc and surgery for further workup of her anemia and possible endoscopy versus colonoscopy. Encouraged cessation of anti-inflammatories for osteoarthritis. Patient's MCV is 71, recommended that patient continue her iron supplements. Critical Care Time Critical Care Time Critical Care Time: Yes Total Critical Care Time: 31 Attestation: Severe anemia requiring transfusion of packed red blood cells. Discharge Plan Departure Patient Disposition: Home Clinical Impression: Anemia requiring transfusions Instructions: Anemia Activity Restrictions/Additional Instructions: Your hemoglobin today was 6.8. Yesterday it was 7.0. We have no other recent numbers for comparison as her last laboratory work was 1 year ago. Your other laboratory work today was normal, there was no sign of infection, and per your stool sample yesterday you have no blood in your stool. I highly recommend following up with both a chief bank examiner as well as a surgeon to talk about possible endoscopy. Prescriptions: No Action benzonatate 100 mg capsule 100 mg PO BID PRN (Reason: cough) Qty: 20 0RF hydrocodone-acetaminophen 5-325 mg tablet 1 tab PO Q4-6H PRN (Reason: pain) Qty: 14 0RF valacyclovir 1 gram tablet 1 PO DAILY lisinopril 10 mg tablet 10 mg PO DAILY Restasis 0.05 % dropperette 1 drp ophthalmic (eye) DAILY tramadol 50 mg tablet 50 mg PO Q6H PRN (Reason: pain) Qty: 10 0RF Referrals: Prema Castrejon MD [Physician] - Livia Olivares ARNP [Primary Care Provider] - Candi Lam MD [Physician] - Stand Alone Forms: Patient Portal/API
[2023-06-26] MEDS: PANTOPRAZOLE 40 MG VIAL 80 MG IV (10:15)
--- NOTE | 2023-06-26 10:44 | DI.RAD.S_ITS ---
PROCEDURE: XR CHEST 1V INDICATIONS: dyspnea, progressive anemia TECHNIQUE: One view of the chest was acquired. COMPARISON: [facility], CR, XR CHEST 1V, 02/08/2023, 13:28. [facility], CR, XR CHEST 2V, 07/28/2020, 9:03. FINDINGS: Surgical changes and devices: None. Lungs and pleura: Similar prominence of the interstitium, likely senescent changes. Low lung volumes. No airspace disease or pleural effusion. Mediastinum: Similar cardiomediastinal contours. Normal heart size. Suspected hiatal hernia. Bones and chest wall: Degenerative changes IMPRESSION: Low lung volumes. No acute abnormality/changes. Suspect moderate to large hiatal hernia. Dictated by: Aaron Portillo M.D. on 06/26/2023 at 11:24 Approved by: Aaron Portillo M.D. on 06/26/2023 at 11:25
--- NOTE | 2023-06-26 19:15 | PC.NURSE ---
This RN was with student RN when assessments were performed and agree with students assessment.
== END 2023-06-26 15:00 | disposition home or self-care (01) ==
PROVIDERS: Emergency Provider Emergency Medicine; PCP Nurse Practitioner Family
DX: D64.9 Anemia, unspecified (principal); I10 Essential (primary) hypertension
CPT/HCPCS: 36415; 36430; 71045; 80053; 85025; 85610; 85730; 86850; 86900; 86901; 93005; 93010; 96374; 99285; 99291; P9016; C9113

== ENCOUNTER 2023-07-04 13:42 | Emergency (ER) | payer MEDICARE, OTHER, SELFPAY ==
[2023-07-04] VITALS (9 sets, daily range): BP systolic 122–175; BP diastolic 59–84; PULSE 77–103; RESP 17–27; TEMP 37.1; O2SAT 94–99
--- NOTE | 2023-07-04 13:51 | ED_ITS ---
HPI - General Adult General Chief complaint: Hypertension Stated complaint: Reaction to blood transfusion Time Seen by Provider: 07/04/23 13:51 Source: patient Mode of arrival: Ambulatory History of Present Illness HPI narrative: Patient is a 83-year-old female history of anemia with recent transfusion on June 25 with history also of hypertension presents today with elevated blood pressure. She is concerned that she may be having a blood transfusion reaction. She reports that over the last 3-4 days she saw elevated today she notes a little nauseous no vomiting she took an he had drank headache. She denies any chest pain or shortness of breath. She has no abdominal pain. Related Data Home Medications Medication Instructions Recorded Confirmed cyclosporine 0.05 % eye drops in a 1 drp ophthalmic (eye) DAILY 01/09/20 05/31/21 dropperette (Restasis) lisinopril 10 mg tablet 10 mg PO DAILY 01/09/20 05/31/21 valacyclovir 1 gram tablet 1 PO DAILY 01/09/20 05/31/21 Previous Rx's Medication Instructions Recorded hydrocodone 5 mg-acetaminophen 325 1 tab PO Q4-6H PRN pain #14 tabs 12/26/17 mg tablet benzonatate 100 mg capsule 100 mg PO BID PRN cough #20 caps 05/31/21 tramadol 50 mg tablet 50 mg PO Q6H PRN pain #10 tabs 02/08/23 Allergies Allergy/AdvReac Type Severity Reaction Status Date / Time Sulfa (Sulfonamide Allergy Unknown childhood Verified 07/04/23 13:44 Antibiotics) reaction [SULFA (SULFONAMIDE ANTIBIOTICS)] Penicillins [PENICILLINS] AdvReac Mild rash, Verified 07/04/23 13:44 itching Patient History Medical History Hypertension Osteoporosis SVT (supraventricular tachycardia) GERD (gastroesophageal reflux disease) Rheumatic fever Surgical History History of appendectomy Family History Father Alcoholic Noel aneurysm Mother Rheumatoid arthritis Grandmother Angina pectoris Coronary artery disease Grandmother Leukemia Social History household members: none Smoking Status: Never smoker Smoking Status: Never smoker alcohol intake frequency: holidays/special occasions only Substance Use Type: does not use Exam Initial Vital Signs Initial Vital Signs: Vital Signs Temperature 98.8 F 07/04/23 13:44 Pulse Rate 86 07/04/23 13:44 Respiratory Rate 17 07/04/23 13:44 Blood Pressure 175/84 H 07/04/23 13:44 Pulse Oximetry 98 07/04/23 13:44 Oxygen Delivery Method Room Air 07/04/23 13:44 GENERAL: Well-appearing 83-year-old female and in no acute distress. HEENT: Head atraumatic,EOMI, pupils reactive, face symmetric, moist mucous membranes CARDIOVASCULAR: Regular rate and rhythm without murmurs, rubs or gallops. RESPIRATORY: Breath sounds equal bilaterally, no wheezes rales or rhonchi. ABDOMEN: Soft, nontender. Normoactive bowel sounds all 4 quadrants. No guarding or rebound. EXTREMITIES: Normal range of motion, no clubbing or edema. Neurovascularly intact NEUROLOGICAL: Alert and oriented x4.Normal gait and speech. SKIN: Warm, dry, no laceration, no petechiae, no rashes or lesions. Course Orders Ordered: ED Orders 07/04/23 13:49 XR chest 1V Stat EKG-12 Lead Stat 07/04/23 13:55 Complete Blood Count AUTO DIFF Stat Comprehensive Metabolic Panel Stat Lipase Stat Magnesium Stat PTT Partial Thromboplastin [place] Stat Prothrombin Time INR Stat Troponin & CK Cardiac Panel Stat 07/04/23 14:12 BNP [NT-proBNP (BNP-Adult 18+)] Stat Discontinued Medications Aspirin (Aspirin 81 Mg Chew Tab) 324 mg PO NOW ONE Stop: 07/04/23 13:49 Last Admin: 07/04/23 14:33 Dose: Not Given Documented By: SPF Vital Signs Vital signs: Vital Signs - 8 hr 07/04/23 13:44 07/04/23 13:52 07/04/23 14:00 Temperature 98.8 F Pulse Rate 86 103 H 83 Respiratory Rate 17 19 Blood Pressure 175/84 H Pulse Oximetry 98 94 99 Oxygen Delivery Method Room Air 07/04/23 14:01 07/04/23 14:01 07/04/23 14:30 Temperature Pulse Rate 88 85 Respiratory Rate 22 Blood Pressure 175/74 H Pulse Oximetry 99 97 Oxygen Delivery Method Room Air 07/04/23 14:31 07/04/23 14:31 07/04/23 15:00 Temperature Pulse Rate 86 83 Respiratory Rate 27 H Blood Pressure 122/59 L Pulse Oximetry 98 99 Oxygen Delivery Method Room Air 07/04/23 15:00 07/04/23 15:30 07/04/23 15:30 Temperature Pulse Rate 80 Respiratory Rate 22 Blood Pressure 160/68 H 152/69 H Pulse Oximetry 98 Oxygen Delivery Method 07/04/23 16:00 07/04/23 16:00 Temperature Pulse Rate 77 Respiratory Rate 24 Blood Pressure 151/70 H Pulse Oximetry 99 Oxygen Delivery Method Room Air Medical Decision Making Lab Data 07/04/23 13:55 07/04/23 13:55 Labs: Lab Results 07/04/23 07/04/23 Range/Units 13:55 14:12 WBC 7.5 (4.5-11.0) X10^3/uL RBC 4.01 (4.0-5.2) X10^6/uL Hgb 9.1 L (12.0-16.0) g/dL Hct 29.5 L (36-46) % MCV 73.5 L (80-100) fL MCH 22.7 L (26-34) PG MCHC 30.9 (30-36) % RDW 20.7 H (11.6-14.8) % Plt Count 448 H (150-400) X10^3/uL Neut % (Auto) 65.5 (50-75) % Lymph % (Auto) 22.0 L (25-40) % [place] % (Auto) 9.2 (3-14) % Eos % (Auto) 2.4 (2-4) % Baso % (Auto) 0.9 (0-2) % Neut # (Auto) 4900 (0201-2125) /uL Lymph # (Auto) 1700 (8522-8864) /uL [place] # (Auto) 700 (0-900) /uL Eos # (Auto) 200 (0-450) /uL Baso # (Auto) 100 (0-100) /uL RBC Morphology See below Anisocytosis 1+ H Microcytosis 1+ H PT 10.7 (9.4-12.5) SECONDS INR 0.9 (0.9-1.3) APTT 32 (25.1-36.5) SECONDS Sodium 136 L (137-145) mmol/L Potassium 4.0 (3.4-5.1) mmol/L Chloride 104 (98-107) mmol/L Carbon Dioxide 24 (22-32) mmol/L BUN 17 (7-17) mg/dL Creatinine 0.82 (0.52-1.04) mg/dL Estimated GFR > 60 (>60) mL/min BUN/Creatinine Ratio 20.7 (6-22) Glucose 111 H (80-110) mg/dL Calcium 9.1 (8.4-10.2) mg/dL Magnesium 2.4 H (1.6-2.3) mg/dL Total Bilirubin 0.3 (0.2-1.3) mg/dL AST 27 (14-36) IU/L ALT 14 (<35) IU/L Alkaline Phosphatase 105 (38-126) U/L Total Creatine Kinase 62 (30-135) U/L Troponin I < 0.012 (0.01-0.034) ng/mL NT-Pro-B Natriuret Pep 167 (<450) pg/mL Total Protein 7.5 (6.3-8.2) g/dL Albumin 4.4 (3.5-5.0) g/dL Globulin 3.1 (1.7-4.1) g/dL Albumin/Globulin Ratio 1.4 (1.0-2.8) Lipase 57 (23-300) U/L Imaging Data Chest x-ray: Radiologist's Impression: PROCEDURE: XR CHEST 1V INDICATIONS: chest pain TECHNIQUE: One view of the chest was acquired. COMPARISON: [facility], , XR CHEST 1V, 06/26/2023, 10:46. FINDINGS: Surgical changes and devices: None. Lungs and pleura: Lungs are clear. No pleural effusions or pneumothorax. Mediastinum: Mediastinal contours appear normal. Heart size is normal. Hiatal hernia Bones and chest wall: No suspicious bony lesions. Overlying soft tissues appear unremarkable. IMPRESSION: No acute cardiopulmonary abnormality is seen. Hiatal hernia. Dictated by: Prashant Comer M.D. on 07/04/2023 at 13:13 ECG Data Attestation: I personally reviewed and interpreted this ECG as follows: Prior ECG tracings: available for review Interpretation: Normal sinus rhythm rate 87 FL interval 142 QRS 74 QTC 433 MDM Narrative Medical decision making narrative: Patient 83-year-old female presents today with elevated blood pressure and headache ongoing for last 3-4 days. She has a history of anemia received a blood transfusion of 1 unit 8 days prior. Blood work has been reviewed WBC 7.5, hemoglobin 9.1, hematocrit 29.5 (H/H previously 6.8 in 22.7) platelets 448, sodium 130, potassium 4.0, chloride 104, carbon dioxide 24, BUN 17, creatinine 0.8, glucose 111 Mag 2.4, bili 0.3, AST 27, ALT 14 alk-phos 105 CPK 62 troponin negative BNP 167 Chest x-ray has been reviewed without any acute cardiopulmonary process EKG has been reviewed without any ischemic changes Patient presents today with elevated blood pressure and headache. She has no evidence of end-organ damage. Blood pressure is elevated but not to an urgent or emergent level. I do not believe this to be related to a blood transfusion reaction. There is no evidence of TRALI or TACO. Patient is concerned that she has reversible cerebral vasoconstrictive syndrome. Her hemoglobin did increase quite a lot after just 1 transfusion. Her blood pressure is slightly elevated but not significantly she has no evidence of encephalopathy. I think that this syndrome is extremely rare in highly unlikely in this particular patient. Unlikely PRES. Did discuss with her to continue checking her blood pressure and monitoring. Discharge Plan Departure Patient Disposition: Home Clinical Impression: Hypertension, Headache Instructions: DI for High Blood Pressure Activity Restrictions/Additional Instructions: *You have been diagnosed with hypertension headache *What to do: At this time please continue to check your blood pressure 1 to 2 times daily. Blood work today is overall reassuring hemoglobin has improved *Continue to take medications as directed *Follow up with your primary care provider in 2-3 days or call [phone] *Return to ER if you should have worsening headache chest pain shortness of breath or any new, worsening or concerning symptoms Prescriptions: No Action benzonatate 100 mg capsule 100 mg PO BID PRN (Reason: cough) Qty: 20 0RF hydrocodone-acetaminophen 5-325 mg tablet 1 tab PO Q4-6H PRN (Reason: pain) Qty: 14 0RF valacyclovir 1 gram tablet 1 PO DAILY lisinopril 10 mg tablet 10 mg PO DAILY Restasis 0.05 % dropperette 1 drp ophthalmic (eye) DAILY tramadol 50 mg tablet 50 mg PO Q6H PRN (Reason: pain) Qty: 10 0RF Referrals: Pendergrast,Livia, BONIFACIO [Primary Care Provider] - Stand Alone Forms: Patient Portal/API
[2023-07-04 14:10] LABS: INR 0.9 (0.9-1.3); Prothrombin Time 10.7 SECONDS (9.4-12.5)
[2023-07-04 14:12] LABS: PTT Partial Thromboplastin Tim 32 SECONDS (25.1-36.5)
[2023-07-04 14:22] LABS: Add Manual Diff / Slide Review NO; Basophils Absolute Auto 100 /uL (0-100); Basophils Percent Auto 0.9 % (0-2); Eosinophils Absolute Auto 200 /uL (0-450); Eosinophils Percent Auto 2.4 % (2-4); Hematocrit 29.5 % (36-46); Hemoglobin 9.1 g/dL (12.0-16.0); Lymphocytes Absolute Auto 1700 /uL (1100-4500); Mean Corpuscular HGB Conc 30.9 % (30-36); Mean Corpuscular Hemoglobin 22.7 PG (26-34); Mean Corpuscular Volume 73.5 fL (80-100); Monocytes Absolute Auto 700 /uL (0-900); Monocytes Percent Auto 9.2 % (3-14); Neutrophils Absolute Auto 4900 /uL (1500-7000); Neutrophils Percent Auto 65.5 % (50-75); Platelet Count 448 X10^3/uL (150-400); Red Blood Cell Count 4.01 X10^6/uL (4.0-5.2); Red Cell Distribution Width 20.7 % (11.6-14.8); White Blood Cell Count 7.5 X10^3/uL (4.5-11.0)
[2023-07-04 14:28] LABS: Alanine Aminotransferase 14 IU/L (<35); Albumin 4.4 g/dL (3.5-5.0); Albumin Globulin Ratio 1.4 (1.0-2.8); Alkaline Phosphatase 105 U/L (38-126); Aspartate Aminotransferase 27 IU/L (14-36); BUN Creatinine Ratio 20.7 (6-22); Bilirubin Total 0.3 mg/dL (0.2-1.3); Blood Urea Nitrogen 17 mg/dL (7-17); Calcium 9.1 mg/dL (8.4-10.2); Carbon Dioxide 24 mmol/L (22-32); Chloride 104 mmol/L (98-107); Creatine Kinase 62 U/L (30-135); Estimated Glomerular Filt Rate > 60 mL/min (>60); Globulin 3.1 g/dL (1.7-4.1); Glucose 111 mg/dL (80-110); HEMOLYSIS < 15 (0-50); Lipase 57 U/L (23-300); Magnesium 2.4 mg/dL (1.6-2.3); Sodium 136 mmol/L (137-145); Total Protein 7.5 g/dL (6.3-8.2)
[2023-07-04 14:40] LABS: Troponin I < 0.012 ng/mL (0.01-0.034)
[2023-07-04 14:55] LABS: Anisocytosis 1+; Microcytosis 1+
[2023-07-04 14:57] LABS: NT-proBNP (BNP-Adult 18+) 167 pg/mL (<450)
== END 2023-07-04 16:32 | disposition home or self-care (01) ==
PROVIDERS: Emergency Provider Emergency Medicine; PCP Nurse Practitioner Family
DX: I10 Essential (primary) hypertension (principal); R51.9 Headache, unspecified; R07.9 Chest pain, unspecified
CPT/HCPCS: 36415; 71045; 80053; 82550; 83690; 83735; 83880; 84484; 85025; 85610; 85730; 93005; 99283; 99284

== ENCOUNTER → 2023-11-04 18:06 | Outpatient (CLI) | payer MEDICARE, OTHER, SELFPAY ==
[2023-11-04 18:49] LABS: Influenza A - CEPHEID Flu A NEGATIVE (NEGATIVE); Influenza B - CEPHEID Flu B NEGATIVE (NEGATIVE); Respiratory Syncytial Virus Negative (Negative)
[2023-11-04 18:59] LABS: COVID-19 CEPHEID 4-PLEX PCR POSITIVE (Negative)
== END ==
PROVIDERS: PCP Nurse Practitioner Family; Referring Provider Nurse Practitioner Family; Visit Provider Nurse Practitioner Family
DX: R05.1 Acute cough (principal)
CPT/HCPCS: 0241U

== ENCOUNTER → 2024-04-28 11:48 | Outpatient (CLI) | payer MEDICARE, OTHER, SELFPAY ==
[2024-04-28 12:18] LABS: Add Manual Diff / Slide Review NO; Basophils Absolute Auto 0 /uL (0-100); Basophils Percent Auto 0.8 % (0-2); Eosinophils Absolute Auto 100 /uL (0-450); Eosinophils Percent Auto 1.4 % (2-4); Hematocrit 43.8 % (36-46); Hemoglobin 14.5 g/dL (12.0-16.0); Lymphocytes Absolute Auto 1300 /uL (1100-4500); Lymphocytes Percent Auto 26.8 % (25-40); Mean Corpuscular Hemoglobin 32.4 PG (26-34); Mean Corpuscular Volume 98.2 fL (80-100); Monocytes Absolute Auto 600 /uL (0-900); Monocytes Percent Auto 11.8 % (3-14); Neutrophils Absolute Auto 2800 /uL (1500-7000); Neutrophils Percent Auto 59.2 % (50-75); Platelet Count 297 X10^3/uL (150-400); Red Blood Cell Count 4.46 X10^6/uL (4.0-5.2); Red Cell Distribution Width 12.6 % (11.6-14.8); White Blood Cell Count 4.8 X10^3/uL (4.5-11.0)
[2024-04-28 12:41] LABS: Erythrocyte Sedimentation Rate 32 MM/HR (0-20)
[2024-04-28 13:00] LABS: Alanine Aminotransferase 19 IU/L (<35); Albumin 4.4 g/dL (3.5-5.0); Albumin Globulin Ratio 1.4 (1.0-2.8); Alkaline Phosphatase 100 U/L (38-126); Aspartate Aminotransferase 29 IU/L (14-36); BUN Creatinine Ratio 18.4 (6-22); Bilirubin Total 0.4 mg/dL (0.2-1.3); Blood Urea Nitrogen 18 mg/dL (7-17); Calcium 10.1 mg/dL (8.4-10.2); Carbon Dioxide 24 mmol/L (22-32); Chloride 102 mmol/L (98-107); Estimated Glomerular Filt Rate 56 mL/min (>60); Globulin 3.2 g/dL (1.7-4.1); Glucose 103 mg/dL (80-110); HEMOLYSIS < 15 (0-50); Potassium 4.7 mmol/L (3.4-5.1); Sodium 136 mmol/L (137-145); Total Protein 7.6 g/dL (6.3-8.2)
[2024-04-28 13:03] LABS: Rheumatoid Factor < 8.6 IU/mL (<12.0)
[2024-04-29 04:12] LABS: CRP, High Sensitivity 1.52 mg/L (0.00-3.00)
== END ==
PROVIDERS: PCP Nurse Practitioner Family; Referring Provider Ophthalmology; Visit Provider Ophthalmology
DX: H57.12 Ocular pain, left eye (principal); G44.52 New daily persistent headache (NDPH)
CPT/HCPCS: 36415; 80053; 85025; 85651; 86140; 86430

== ENCOUNTER 2024-05-29 19:02 | Emergency (ER) | payer MEDICARE, OTHER, SELFPAY ==
[2024-05-29] VITALS (9 sets, daily range): BP systolic 158–208; BP diastolic 74–89; PULSE 80–101; RESP 18–21; TEMP 36.1–36.6; O2SAT 95–98; BMI 29.0
--- NOTE | 2024-05-29 19:13 | DI.RAD.S_ITS ---
PROCEDURE: XR CHEST 1V INDICATIONS: chest pain TECHNIQUE: One view of the chest was acquired. COMPARISON: [facility], CR, XR CHEST 1V, 07/04/2023, 13:51. FINDINGS: Surgical changes and devices: None. Lungs and pleura: Lungs are clear. No pleural effusions or pneumothorax. Mediastinum: Mediastinal contours appear normal. Heart size is normal. Hiatal hernia. Aortic arch is calcified. Bones and chest wall: No suspicious bony lesions. Overlying soft tissues appear unremarkable. IMPRESSION: No acute cardiopulmonary abnormality is seen. Hiatal hernia. Approved by: Celine Franz M.D.,Ph.D. on 05/29/2024 at 19:58
--- NOTE | 2024-05-29 19:27 | EKG_ITS ---
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
[2024-05-29 19:42] LABS: Add Manual Diff / Slide Review NO; Basophils Absolute Auto 100 /uL (0-100); Basophils Percent Auto 0.9 % (0-2); Eosinophils Absolute Auto 200 /uL (0-450); Eosinophils Percent Auto 2.5 % (2-4); Hematocrit 39.5 % (36-46); Hemoglobin 13.3 g/dL (12.0-16.0); Lymphocytes Absolute Auto 1300 /uL (1100-4500); Lymphocytes Percent Auto 19.9 % (25-40); Mean Corpuscular HGB Conc 33.7 % (30-36); Mean Corpuscular Hemoglobin 32.9 PG (26-34); Mean Corpuscular Volume 97.7 fL (80-100); Monocytes Absolute Auto 700 /uL (0-900); Monocytes Percent Auto 11.1 % (3-14); Neutrophils Absolute Auto 4200 /uL (1500-7000); Neutrophils Percent Auto 65.6 % (50-75); Platelet Count 269 X10^3/uL (150-400); Red Blood Cell Count 4.04 X10^6/uL (4.0-5.2); Red Cell Distribution Width 12.7 % (11.6-14.8); White Blood Cell Count 6.4 X10^3/uL (4.5-11.0)
[2024-05-29 19:49] LABS: Prothrombin Time 10.8 SECONDS (9.4-12.5)
[2024-05-29 19:51] LABS: PTT Partial Thromboplastin Tim 34 SECONDS (25.1-36.5)
[2024-05-29 19:53] LABS: Alanine Aminotransferase 23 IU/L (<35); Albumin 4.2 g/dL (3.5-5.0); Albumin Globulin Ratio 1.3 (1.0-2.8); Alkaline Phosphatase 93 U/L (38-126); Aspartate Aminotransferase 35 IU/L (14-36); Bilirubin Total 0.3 mg/dL (0.2-1.3); Blood Urea Nitrogen 21 mg/dL (7-17); Calcium 9.4 mg/dL (8.4-10.2); Carbon Dioxide 30 mmol/L (22-32); Chloride 102 mmol/L (98-107); Creatine Kinase 131 U/L (30-135); Estimated Glomerular Filt Rate 37 mL/min (>60); Globulin 3.3 g/dL (1.7-4.1); Glucose 117 mg/dL (80-110); HEMOLYSIS < 15 (0-50); Lipase 152 U/L (23-300); Magnesium 2.1 mg/dL (1.6-2.3); Potassium 4.9 mmol/L (3.4-5.1); Sodium 138 mmol/L (137-145); Total Protein 7.5 g/dL (6.3-8.2)
[2024-05-29 20:05] LABS: NT-proBNP (BNP-Adult 18+) 222 pg/mL (<450); Troponin I < 0.012 ng/mL (0.01-0.034)
--- NOTE | 2024-05-29 20:09 | ED_ITS ---
HPI - General Adult General Chief complaint: Hypertension Stated complaint: high bp, out of medication t-2 Time Seen by Provider: 05/29/24 19:18 Source: patient Mode of arrival: Ambulatory History of Present Illness HPI narrative: 84-year-old woman with a history of hypertension, macular degeneration has been on losartan and has not taken it for 3 days, apparently was not refilled. Comes in today complaining of blurry vision and lightheadedness. 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 Patient tried returning calls on Thursday evening Thursday and Thursday morning with no results. Comes to the emergency room this evening with increasing symptoms and concerns that her blood pressure continues to increase. She is not having chest pain, dyspnea or palpitations. Related Data Home Medications Medication Instructions Recorded Confirmed cyclosporine 0.05 % eye drops in a 1 drp ophthalmic (eye) DAILY 01/09/20 11/04/23 dropperette (Restasis) valacyclovir 1 gram tablet 1 PO DAILY 01/09/20 11/04/23 losartan 25 mg tablet 25 mg PO DAILY 11/04/23 11/04/23 metoprolol succinate 25 mg 25 mg PO DAILY 11/04/23 11/04/23 tablet,extended release 24 hr omeprazole 20 mg capsule,delayed 20 mg PO DAILY 11/04/23 11/04/23 release Previous Rx's Medication Instructions Recorded hydrocodone 5 mg-acetaminophen 325 1 tab PO Q4-6H PRN pain #14 tabs 12/26/17 mg tablet benzonatate 100 mg capsule 100 mg PO BID PRN cough #20 caps 05/31/21 tramadol 50 mg tablet 50 mg PO Q6H PRN pain #10 tabs 02/08/23 nirmatrelvir 300 mg (150 mg See Rx Instructions PO .COMPLEX 11/04/23 x2)-ritonavir 100 mg tablet,dose #30 ea pack (Paxlovid) losartan 50 mg tablet 50 mg PO DAILY #30 tabs 05/29/24 Allergies Allergy/AdvReac Type Severity Reaction Status Date / Time Sulfa (Sulfonamide Allergy Unknown childhood Verified 07/04/23 13:44 Antibiotics) reaction [SULFA (SULFONAMIDE ANTIBIOTICS)] Penicillins [PENICILLINS] AdvReac Mild rash, Verified 07/04/23 13:44 itching Review of Systems Review of Systems Narrative: Pertinent positive and negative findings as per HPI Patient History Medical History Hypertension Osteoporosis SVT (supraventricular tachycardia) GERD (gastroesophageal reflux disease) Rheumatic fever Surgical History History of appendectomy Family History Father Alcoholic Noel aneurysm Mother Rheumatoid arthritis Grandmother Angina pectoris Coronary artery disease Grandmother Leukemia Social History household members: none Smoking Status: Never smoker Smoking Status: Never smoker alcohol intake frequency: holidays/special occasions only Exam Initial Vital Signs Initial Vital Signs: Vital Signs Temperature 96.9 F L 05/29/24 19:05 Pulse Rate 82 05/29/24 19:05 Respiratory Rate 18 05/29/24 19:05 Blood Pressure 208/88 H 05/29/24 19:05 Pulse Oximetry 97 05/29/24 19:05 Oxygen Delivery Method Room Air 05/29/24 19:05 General: Healthy appearing, in no acute distress. Able to give a complete and coherent history. Well-nourished well-developed HEENT: Moist mucous membranes, normal sclera with reactive pupils, Respiratory: Lungs are clear to auscultation, no wheezing no rales no rhonchi. Full and symmetrical air movement Cardiac: Regular rate and rhythm no murmurs no bruits Abdomen: Soft, nontender, no rebound or guarding, no flank pain Skin: Warm and dry, no rashes Neurologic: Grossly neurologically intact with no obvious asymmetries or abnormalities Extremities: No trauma, well perfused Psych: Cooperative, appropriate insight and affect Course Orders Ordered: ED Orders 05/29/24 17:34 Complete Blood Count AUTO DIFF Stat Comprehensive Metabolic Panel Stat Lipase Stat Magnesium Stat NT-proBNP (BNP-Adult 18+) Stat PTT Partial Thromboplastin [place] Stat Prothrombin Time INR Stat Troponin & CK Cardiac Panel Stat 05/29/24 19:13 XR chest 1V Stat EKG-12 Lead Stat Discontinued Medications Losartan Potassium (Losartan 50 Mg Tablet) 50 mg PO NOW ONE Stop: 05/29/24 20:13 Last Admin: 05/29/24 20:40 Dose: 50 mg Documented By: JONAH Vital Signs Vital signs: Vital Signs - 8 hr 05/29/24 19:05 05/29/24 19:16 05/29/24 19:30 Temperature 96.9 F L Pulse Rate 82 101 H 86 Respiratory Rate 18 Blood Pressure 208/88 H Pulse Oximetry 97 97 98 Oxygen Delivery Method Room Air 05/29/24 19:30 05/29/24 20:00 05/29/24 20:00 Temperature Pulse Rate 82 Respiratory Rate 18 Blood Pressure 187/89 H 188/84 H Pulse Oximetry 97 Oxygen Delivery Method 05/29/24 20:30 05/29/24 20:30 05/29/24 20:40 Temperature Pulse Rate 83 81 Respiratory Rate 21 Blood Pressure 172/77 H 172/77 H Pulse Oximetry 96 Oxygen Delivery Method 05/29/24 21:00 05/29/24 21:00 Temperature Pulse Rate 93 H Respiratory Rate Blood Pressure 180/74 H Pulse Oximetry 95 Oxygen Delivery Method Medical Decision Making Lab Data 05/29/24 17:34 05/29/24 17:34 Labs: Lab Results 05/29/24 Range/Units 17:34 WBC 6.4 (4.5-11.0) X10^3/uL RBC 4.04 (4.0-5.2) X10^6/uL Hgb 13.3 (12.0-16.0) g/dL Hct 39.5 (36-46) % MCV 97.7 (80-100) fL MCH 32.9 (26-34) PG MCHC 33.7 (30-36) % RDW 12.7 (11.6-14.8) % Plt Count 269 (150-400) X10^3/uL Neut % (Auto) 65.6 (50-75) % Lymph % (Auto) 19.9 L (25-40) % [place] % (Auto) 11.1 (3-14) % Eos % (Auto) 2.5 (2-4) % Baso % (Auto) 0.9 (0-2) % Neut # (Auto) 4200 (6255-2123) /uL Lymph # (Auto) 1300 (6014-3867) /uL [place] # (Auto) 700 (0-900) /uL Eos # (Auto) 200 (0-450) /uL Baso # (Auto) 100 (0-100) /uL PT 10.8 (9.4-12.5) SECONDS INR 1.0 (0.9-1.3) APTT 34 (25.1-36.5) SECONDS Sodium 138 (137-145) mmol/L Potassium 4.9 (3.4-5.1) mmol/L Chloride 102 (98-107) mmol/L Carbon Dioxide 30 (22-32) mmol/L BUN 21 H (7-17) mg/dL Creatinine 1.40 H (0.52-1.04) mg/dL Estimated GFR 37 L (>60) mL/min BUN/Creatinine Ratio 15.0 (6-22) Glucose 117 H (80-110) mg/dL Calcium 9.4 (8.4-10.2) mg/dL Magnesium 2.1 (1.6-2.3) mg/dL Total Bilirubin 0.3 (0.2-1.3) mg/dL AST 35 (14-36) IU/L ALT 23 (<35) IU/L Alkaline Phosphatase 93 (38-126) U/L Total Creatine Kinase 131 (30-135) U/L Troponin I < 0.012 (0.01-0.034) ng/mL NT-Pro-B Natriuret Pep 222 (<450) pg/mL Total Protein 7.5 (6.3-8.2) g/dL Albumin 4.2 (3.5-5.0) g/dL Globulin 3.3 (1.7-4.1) g/dL Albumin/Globulin Ratio 1.3 (1.0-2.8) Lipase 152 (23-300) U/L MDM Narrative Medical decision making narrative: CC: Blood pressure elevated, Dizziness and blurry vision Complicating co-morbidities: Hypertension, has not been taking her losartan for the last 3 days, macular degeneration Data collected from: patient Medical records reviewed: Notes from [facility] indicate that she is supposed to be on 50 mg of losartan unclear why this was not refilled. Has a history of iron-deficiency anemia that has been improving nicely. Differential considered: Elevated blood pressure due to lack of medication, stroke, viral syndrome Exam documented above, pertinent findings include: Unremarkable exam, no signs of acute stroke, patient is alert and appropriate. Blood pressure is currently at 180 systolic. She states she is still slightly dizzy. Lab Test results independently reviewed as above. Pertinent findings: CBC is unremarkable Chemistries show bump in creatinine from 0.98-1.4 Troponin is undetectable Independently reviewed EKG: Sinus rhythm at a rate of 80, no acute ischemia Imaging studies independently reviewed: Chest x-ray shows no acute pulmonary or cardiac pathology Treatments: 50 mg of losartan orally (usual dose is 25) Discussion: 84-year-old woman with longstanding hypertension. Currently supposed to be on losartan 50 mg daily, requested refill from pharmacy and apparently pharmacy is waiting to hear from the primary physician's office. Blood pressure is made elevated over the last 3 days. She is concerned that she is somewhat dizzy. As her blood pressure is trending down in the emergency department she is doing much better. 50 mg of losartan is refilled. I have left a message for her primary care physician regarding her slight bump in creatinine and need for blood work likely in the next month or so. No signs of stroke, acute coronary syndrome, hypertensive crisis reasons for further evaluation or hospital admission and patient will be discharged Discharge Plan Departure Patient Disposition: Home Clinical Impression: Hypertension Qualifiers: Hypertension type: primary hypertension Qualified Code(s): I10 - Essential (primary) hypertension Instructions: DI for High Blood Pressure Activity Restrictions/Additional Instructions: Thank you for coming in today, I am sorry that getting your blood pressure medication refilled has been so frustrating. I refilled 50 mg of losartan with prescription sent to [facility] in [place]. I sent message to Prema neal letting her know that there has been a mixed up and refills, that you are in the emergency department, requested that she provide your long refills for your losartan. I also let her know that your kidney function test had changed slightly and recommended rechecking this in a month or so. At this time there was no indication for heart attack, stroke or reasons for hospitalization. Thank you for paying attention to your blood pressure and hopefully we can be more consistent and keeping your medications appropriately filled Prescriptions: New losartan 50 mg tablet 50 mg PO DAILY Qty: 30 3RF No Action omeprazole 20 mg capsule,delayed release(DR/EC) 20 mg PO DAILY losartan 25 mg tablet 25 mg PO DAILY metoprolol succinate 25 mg tablet extended release 24 hr 25 mg PO DAILY benzonatate 100 mg capsule 100 mg PO BID PRN (Reason: cough) Qty: 20 0RF Paxlovid 300 mg (150 mg x 2)-100 mg tablets,dose pack See Rx Instructions PO .COMPLEX Qty: 30 0RF Rx Instructions: take TWO 150 mg tablets of nirmatrelvir with ONE 100 mg tablet of ritonavir twice daily for 5 days PO hydrocodone-acetaminophen 5-325 mg tablet 1 tab PO Q4-6H PRN (Reason: pain) Qty: 14 0RF valacyclovir 1 gram tablet 1 PO DAILY Restasis 0.05 % dropperette 1 drp ophthalmic (eye) DAILY tramadol 50 mg tablet 50 mg PO Q6H PRN (Reason: pain) Qty: 10 0RF Referrals: Livia Olivares ARNP [Primary Care Provider] - Stand Alone Forms: Patient Portal/API/Survey
[2024-05-29] MEDS: LOSARTAN 50 MG TABLET PO (20:40)
== END 2024-05-29 21:55 | disposition home or self-care (01) ==
PROVIDERS: Emergency Provider Emergency Medicine; PCP Nurse Practitioner Family
DX: I10 Essential (primary) hypertension (principal); R42 Dizziness and giddiness
CPT/HCPCS: 36415; 71045; 80053; 82550; 83690; 83735; 83880; 84484; 85025; 85610; 85730; 93005; 93010; 99284